=== PATIENT | female | born 1950 | race American Indian/Alaskan Native ===

== ENCOUNTER 2016-08-25 23:17 | Inpatient (IN) | payer MEDICARE ==
[2016-08-25] MEDS ORDERED: TYLENOL PO ONE (23:58)
[2016-08-26 00:51] LABS: Basophils % (Auto) 0.8 % (0.0-1.8); Eosinophils % (Auto) 0.3 % (0.0-4.3); Hemoglobin 14.7 gm/dl (10.1-14.3); Mean Corpuscular HGB Conc 33 % (30-34); Mean Corpuscular Hemoglobin 28 pg (28-32); Mean Corpuscular Volume 85 fl (79-97); Platelet Count 231 K/mm3 (140-440); Red Blood Count 5.29 M/mm3 (3.65-5.03); Red Cell Distribution Width 14.4 % (13.2-15.2); White Blood Count 11.6 K/mm3 (4.5-11.0)
[2016-08-26] MEDS ORDERED: MORPHINE ONE ×2 (00:54)
[2016-08-26] MEDS ORDERED: ZOFRAN ONE (00:54)
[2016-08-26 01:19] LABS: Blood Urea Nitrogen 16 mg/dL (7-17); Calcium 10.4 mg/dL (8.4-10.2); Carbon Dioxide 19 mmol/L (22-30); Chloride 89.8 mmol/L (98-107); Glucose 319 mg/dL (65-100); Potassium 3.7 mmol/L (3.6-5.0); Sodium 137 mmol/L (137-145)
[2016-08-26] MEDS ORDERED: ASPIRIN PO ONE (01:25)
[2016-08-26] MEDS ORDERED: NITRO-BID 2% TP ONE (01:25)
[2016-08-26 01:27] LABS: Anion Gap 32 mmol/L
[2016-08-26] MEDS ORDERED: SUBLIMAZE IV ONE (01:30)
--- NOTE | 2016-08-26 01:36 | Emergency Department Report ---
HPI - General Chief Complaint: Chest Pain Time Seen by Provider: 08/26/16 01:23 - HPI HPI: Room 9 The patient is a 66-year-old female presenting with a chief complaint of chest pain. Family states the patient awakened this morning with nausea and feeling faint. The nausea continued throughout 22:00 this evening and the patient suddenly developed substernal chest tightness and shortness of breath. The patient did vomit. Patient denies diaphoresis. The patient states her chest pain has decreased to a 2/10. The patient states her last stress test occurred approximately 10 years ago but she has never had a cardiac catheterization Location: Chest Duration: [see above] Quality: Tightness Severity: 2/10 Modifying factors: [see above] Context: [see above] Mode of transportation: [not driving] ED Past Medical Hx - Past Medical History Previous Medical History?: Yes Hx Hypertension: Yes Hx CVA: Yes (2005) Hx Diabetes: Yes Additional medical history: MVP - Surgical History Past Surgical History?: No - Family History Family history: no significant - Social History Smoking Status: Never Smoker Substance Use Type: None ED Review of Systems ROS: Stated complaint: SOB,CHEST PAIN Other details as noted in HPI Comment: All other systems reviewed and negative Constitutional: denies: chills, diaphoresis, fever Eyes: denies: eye pain, eye discharge, vision change ENT: denies: ear pain, throat pain Respiratory: shortness of breath Cardiovascular: chest pain Endocrine: no symptoms reported Gastrointestinal: nausea, vomiting Genitourinary: denies: urgency, dysuria, discharge Musculoskeletal: denies: back pain, joint swelling, arthralgia Skin: denies: rash, lesions Neurological: denies: headache, weakness, paresthesias Psychiatric: denies: anxiety, depression Hematological/Lymphatic: denies: easy bleeding, easy bruising Physical Exam - Physical Exam Vital Signs: Vital Signs 08/25/16 08/26/16 23:27 00:18 Temperature 98.1 F Pulse Rate 89 Respiratory 26 H 20 Rate Blood Pressure 191/90 [Right] O2 Sat by Pulse 100 99 Oximetry Physical Exam: GENERAL: The patient is well-developed well-nourished female lying on stretcher. Be in mild discomfort. [] HEENT: Normocephalic. Atraumatic. Extraocular motions are intact. Patient has moist mucous membranes. NECK: Supple. Trachea midline CHEST/LUNGS: Clear to auscultation. There is no respiratory distress noted. HEART/CARDIOVASCULAR: Regular. There is no tachycardia. There is no gallop rub or murmur. ABDOMEN: Abdomen is soft, nontender. Patient has normal bowel sounds. There is no abdominal distention. SKIN: There is no rash. There is no edema. There is no diaphoresis. NEURO: The patient is awake, alert, and oriented. The patient is cooperative. The patient has normal speech MUSCULOSKELETAL: There is no evidence of acute injury. ED Course Vital Signs 08/25/16 08/26/16 23:27 00:18 Temperature 98.1 F Pulse Rate 89 Respiratory 26 H 20 Rate Blood Pressure 191/90 [Right] O2 Sat by Pulse 100 99 Oximetry ED Medical Decision Making - Lab Data Result diagrams: 08/26/16 00:31 08/26/16 00:31 Laboratory Tests 08/26/16 08/26/16 00:31 00:31 WBC 11.6 H RBC 5.29 H Hgb 14.7 H Hct 45.0 H MCV 85 MCH 28 MCHC 33 RDW 14.4 Plt Count 231 Lymph % (Auto) 26.8 [place] % (Auto) 7.8 H Eos % (Auto) 0.3 Baso % (Auto) 0.8 Lymph # 3.1 [place] # 0.9 H Eos # 0.0 Baso # 0.1 Seg Neutrophils % 64.3 Seg Neutrophils # 7.5 Sodium 137 Potassium 3.7 Chloride 89.8 L Carbon Dioxide 19 L Anion Gap 32 BUN 16 Creatinine 0.8 Estimated GFR > 60 BUN/Creatinine Ratio 20.00 Glucose 319 H Calcium 10.4 H Troponin T 0.021 - EKG Data -: EKG Interpreted by Me EKG shows normal: sinus rhythm Rate: normal - EKG Data When compared to previous EKG there are: previous EKG unavailable Interpretation: nonspecific ST-T wave tayler (ST depression in leads 1, aVF, V3, V4 , V5, V6. T-wave inversions in leads 1, V3, V4, V5, V6. Biphasic T waves in leads 2 and aVF) - Radiology Data Radiology results: image reviewed (chest x-ray) interpreted by me: Chest x-ray-no focal infiltrates, no pneumothorax - Differential Diagnosis ACS, GERD, pericarditis Critical care attestation.: If time is entered above; I have spent that time in minutes in the direct care of this critically ill patient, excluding procedure time. ED Disposition Clinical Impression: Chest pain, ST segment depression, T wave inversion in EKG Disposition: OP ADMITTED IP TO THIS HOSP Is pt being admited?: Yes Does the pt Need Aspirin: Yes Condition: Fair Instructions: Chest Pain (ED) Referrals: PRIMARY CARE, [Primary Care Provider] - 3-5 Days Time of Disposition: 01:52 (hospitalist paged)
[2016-08-26] MEDS ORDERED: NACL 0.9% 1000 ML 1,000 ML IV ONE (01:55)
[2016-08-26] MEDS ORDERED: ZOFRAN IV ONE (02:15)
[2016-08-26] MEDS ORDERED: BABY ASPIRIN PO ONE (02:18)
[2016-08-26] MEDS ORDERED: APRESOLINE IV PRN (02:57)
--- NOTE | 2016-08-26 05:36 | Cat Scan Report ---
FINAL REPORT PROCEDURE: CT HEAD/BRAIN WO CON TECHNIQUE: Computerized tomography of the head was performed without contrast material. HISTORY: double vision, slurred speech COMPARISON: No prior studies are available for comparison. FINDINGS: Skull and scalp: Normal. Paranasal sinuses: Normal. Ventricles and subarachnoid spaces: Normal. Cerebrum: No evidence of hemorrhage, acute infarction or mass. Mild atrophy and periventricular deep white matter change.. Cerebellum and brainstem: No evidence of hemorrhage, acute infarction or mass. Vasculature: Normal. Comments: None. IMPRESSION: There is no evidence of an acute intracranial process. Mild atrophy and periventricular deep white matter change.
--- NOTE | 2016-08-26 05:47 | History and Physical Report ---
[id number] History of present illness: [id number] woman with history of hypertension, diabetes, mitral valve prolapse, CVA with residual left-sided weakness comes to the emergency room with complaints of chest pain. Pain is in the epigastric area which she is unable to describe, constant, intensity 6/10, no radiation and she cannot identify exacerbating or relieving factors. Daughter state that she had multiple episodes of nausea vomiting, also complaining of shortness of breath, no diaphoresis or palpitation.. Daughter patient has slurred speech and double vision Patient denies cough, abdominal pain, hematochezia, dysuria, frequency, focal weakness, fever chills, polydipsia polyuria, hot or cold intolerance, easy bruisability, or rash or bleeding from mucosal membrane, rhinorrhea, epistaxis, earache, tinnitus, eye discharge, anxiety, depression. Other review of systems negative PAST SURGICAL HISTORY: Breast surgery SOCIAL HISTORY: Denies alcohol, tobacco, drugs FAMILY HISTORY: Hypertension Medications and Allergies Allergies Allergy/AdvReac Type Severity Reaction Status Date / Time morphine Allergy Hives Verified 08/25/16 23:21 Home Medications Medication Instructions Recorded Confirmed Last Taken Type Hydrochlorothiazide [HCTZ] 25 mg PO QDAY 08/26/16 08/26/16 08/25/16 History Insulin Glargine [Lantus] 15 unit SUB-Q QHS 08/26/16 08/26/16 08/25/16 History Insulin Lispro [Humalog 100 See Protocol SQ AC 08/26/16 08/26/16 08/25/16 History UNITS/ML Kwikpen] Lisinopril [Zestril] 40 mg PO DAILY 08/26/16 08/26/16 08/25/16 History Metoprolol Tartrate 100 mg PO DAILY 08/26/16 08/26/16 08/25/16 History amLODIPine [Norvasc] 5 mg PO DAILY 08/26/16 08/26/16 08/25/16 History Active Meds: Active Medications Hydralazine HCl (Apresoline) 5 mg IV Q6H PRN PRN Reason: Hypertension Last Admin: 08/26/16 04:37 Dose: 5 mg Sodium Chloride (Nacl 0.9% 1000 Ml) 1,000 mls @ 125 mls/hr IV ONCE ONE Stop: 08/26/16 09:54 Last Admin: 08/26/16 02:35 Dose: 125 mls/hr Exam - Physical Exam Narrative exam: Gen. appearance: Patient lying in bed, no apparent distress HEENT: Normocephalic, atraumatic, pupils equally round and reactive to light, extraocular movement intact, and no sclericterus,. No JVD or thyromegaly or nodule,neck supple, no carotid bruit ,mucous membranes moist, no exudate or erythema Heart: S1, S2, regular rate and rhythm Lungs: Clear to auscultation bilaterally, breathing comfortable Abdomen: Positive bowel sounds, nontender, nondistended, no organomegaly Extremity: No edema, cyanosis, clubbing Skin: No rash, nodules, warm, dry Neuro: Oriented 3, cranial nerves II-12 intact, speech is slurred, poor effort on motor motor - Constitutional Vitals: Temp Pulse Resp BP Pulse Ox 98.1 F 100 H 19 155/72 100 08/25/16 23:27 08/26/16 04:45 08/26/16 04:45 08/26/16 04:45 08/26/16 04:45 Results - Labs CBC & Chem 7: 08/26/16 00:31 08/26/16 00:31 - Imaging and Cardiology EKG: image reviewed (caseyr, silvano with repol, inverted t in inf leads) Chest x-ray: image reviewed (nad) CT Scan - head: pending Assessment and Plan Acute CVA Hypertension malignant Chest pain rule out ACS Diabetes type 2 History of CVA Admits medicine Obtain MRI of the head, carotid Doppler, echo, lipid profile Check cardiac enzymes, neurochecks, swallow screen Start aspirin, statin, and stress tests Consult neurology, hydralazine as needed for blood pressure control Check fingersticks initiate insulin sliding scale, start DVT prophylaxis
[2016-08-26] MEDS ORDERED: DILAUDID IV PRN (07:46)
[2016-08-26] MEDS ORDERED: TYLENOL PO PRN ×2 (07:46)
[2016-08-26] MEDS ORDERED: SODIUM CHLORIDE FLUSH SYRINGE 10 ML INJ PRN (07:46)
[2016-08-26] MEDS ORDERED: ZOFRAN IV PRN (07:46)
[2016-08-26] MEDS ORDERED: SODIUM CHLORIDE FLUSH SYRINGE 10 ML IV PRN (07:46)
[2016-08-26] MEDS ORDERED: MILK OF MAGNESIA PO PRN (07:46)
--- NOTE | 2016-08-26 09:46 | XRay Report ---
AP CHEST : 08/25/16 23:17:00 CLINICAL: Chest pain. COMPARISON:None FINDINGS: Normal heart and pulmonary vessels. The lungs are normally expanded and clear. The bones and soft tissues are unremarkable. IMPRESSION: No acute cardiopulmonary process.
[2016-08-26] MEDS ORDERED: LOVENOX SUB-Q SCH (10:00)
[2016-08-26] MEDS ORDERED: DULCOLAX PR PRN ×2 (10:00)
[2016-08-26] MEDS ORDERED: ASPIRIN PO SCH (10:00)
[2016-08-26 10:20] LABS: Creatine Kinase MB 4.8 ng/mL (0.0-4.0)
--- NOTE | 2016-08-26 11:55 | Consultation ---
History of Present Illness - Reason for Consult Consult date: 08/26/16 stroke - History of Present Illness patient is seen and assessed she has hand numbness and slurred speech this a/ w severe vertigo plan further neuro w/u for ischemic stroke exam is stable at this point- reviewed the chart Thanks for the consult Medications and Allergies Allergies Allergy/AdvReac Type Severity Reaction Status Date / Time morphine Allergy Hives Verified 08/25/16 23:21 Active Meds: Active Medications Acetaminophen (Tylenol) 650 mg PO Q4H PRN PRN Reason: Pain MILD(1-3)/Fever >100.5/FU Aspirin (Aspirin) 325 mg PO QDAY [facility] Bisacodyl (Dulcolax) 10 mg [place] QDAY PRN PRN Reason: Constipation unrelieved by MOM Enoxaparin Sodium (Lovenox) 40 mg SUB-Q QDAY@1000 ADILENE Hydralazine HCl (Apresoline) 5 mg IV Q6H PRN PRN Reason: Keep SBP between 160-185 mm Hg Hydromorphone HCl (Dilaudid) 0.5 mg IV Q6H PRN PRN Reason: Pain , Severe (7-10) Insulin Human Regular (Novolin R) 0 units SUB-Q ACHS AD[facility] PRN Reason: Protocol Magnesium Hydroxide (Milk Of Magnesia) 30 ml PO Q4H PRN PRN Reason: Constipation Ondansetron HCl (Zofran) 4 mg IV Q8H PRN PRN Reason: N/V unrelieved by Reglan Simvastatin (Zocor) 20 mg PO QHS [facility] Sodium Chloride (Sodium Chloride Flush Syringe 10 Ml) 10 ml IV PRN PRN PRN Reason: LINE FLUSH Exam - Constitutional Vitals: Temp Pulse Resp BP Pulse Ox 98.3 F 99 H 16 170/77 99 08/26/16 06:44 08/26/16 06:44 08/26/16 06:44 08/26/16 07:00 08/26/16 11:07 Results - Labs CBC & Chem 7: 08/26/16 00:31 08/26/16 00:31 Labs: Abnormal lab results 08/26/16 08/26/16 08/26/16 Range/Units 04:45 07:40 07:52 POC Glucose 304 H 379 H (70-105) CK-MB (CK-2) 4.8 H (0.0-4.0) ng/mL CK-MB (CK-2) Rel Index 5.2 H (0-4) Cholesterol 267 H (50-199) mg/dL LDL Cholesterol Direct 183 H (50-130) mg/dL HDL Cholesterol 65 H (40-59) mg/dL
[2016-08-26] MEDS: LOVENOX SUB-Q SCH (12:19)
[2016-08-26] MEDS: APRESOLINE IV PRN ×2 (12:20→17:37)
--- NOTE | 2016-08-26 16:16 | Event Note ---
Date: 08/26/16 Patient seen and examined, admitted this morning with stroke protocol. Could not have stress test today as stress lab is closed. SHe will have the stress test tomorrow. Continue current management as dictated in H&P.
[2016-08-26 16:41] LABS: Creatine Kinase MB 8.4 ng/mL (0.0-4.0)
[2016-08-26] MEDS: PROTONIX IV SCH (18:39)
[2016-08-26] MEDS: NACL 0.9% 1000 ML 1,000 ML IV SCH (18:39)
[2016-08-26] MEDS: ZOCOR PO SCH (21:59)
--- NOTE | 2016-08-27 01:04 | Admit Criteria Form ---
Admission Criteria Documentation: CHEST PAIN Clinical Indications for Admission to Inpatient Care (Place 'X' for any and all applicable criteria): Admission is indicated for chest pain and ANY ONE of the following(1)(2)(3)(4)(5 ): [ ]I. Angina with acute coronary syndrome (Also use Myocardial Infarction or Angina guideline) [ ]II. Hemodynamic instability [ ]III. Angina needing acute intervention as indicated by ALL of the following( 11)(12): [ ]a) Unstable angina is present as indicated by angina that is ANY ONE of the following: [ ]i) New onset [ ]ii) Nocturnal [ ]iii) Prolonged at rest [ ]iv) Progressive [ ]b) Angina warrants acute intervention as indicated by ANY ONE of the following: [ ]i) Recurrent angina (e.g, not responding as previously to treatment) [ ]ii) Angina at rest or with low-level activities despite initial medical therapy [ ]iii) New or presumably new ST-segment depression on ECG [ ]iv) Signs or symptoms of heart failure (eg, dyspnea, pulmonary edema) [ ]v) New or worsening mitral regurgitation [ ]vi) Hemodynamic instability [ ]vii) Dangerous arrhythmia (eg, sustained ventricular tachycardia) [ ]viii) History of percutaneous coronary intervention within 6 months [ ]ix) History of coronary artery bypass graft surgery [ ]x) NEYMAR risk score of 2 or greater[A] [ ]xi) History of Diabetes(14) [ ]xii) High-risk cardiac ischemia findings on noninvasive testing (e.g, echocardiogram, treadmill testing, nuclear scan) [ ]xiii) Chronic renal insufficiency (ie, estimated GFR less than 60 mL/min/1.732m) [ ]xiv) Left ventricular ejection fraction less than 40% [ ]IV. Evidence of VA (eg, cardiac biomarkers positive, ST-segment elevation on ECG) also use Myocardial Infarction Criteria Form. [ ]V. Pulmonary edema [ ]. Respiratory distress [ ]VII. Chest pain indicative of serious diagnosis other than coronary artery disease (eg, aortic dissection) [ ]VIII. Contraindications and/or Inappropriate clinical situations for Observational Care in patients with Chest Pain, when ANY ONE of the following is required: [ ]a) Patient with risk factor for pulmonary embolism, acute coronary syndrome and myocardial infarction (18) [ ]b) Patient with Pulmonary embolism require an average LOS of 4.3 days, therefore emergency department observation management is inappropriate 18,23 [ ]c) Painful condition/s in the elderly, have the highest rate of recidivism after emergency department observation management (10.8%) 20,21,22 [ ]d) Elevated cardiac biomarker requires intensive and exhaustive care (19) [ X]IX. General contraindications and/or Inappropriate clinical situations for Observational Care in patients with Chest Pain, when ANY ONE of the following is required: [ ]a) Prediction of prolongation of LOS based on ANY ONE of the following may be considered as a contraindication for observational care 2, 3, 4, 5, 6, 7, 8, 9, 10, 11 [ ]i) Age > 65 yrs. [ ]ii) Patient arriving by ambulance [ ]iii) Patient with high acuity [ ]iv) Patient requiring vital sign monitoring [ ]v) Patient on IV medication [ X]b) Systolic blood pressures 180mmHg 3,12 [ ]c) Patient with altered mental status including delirium and other alteration of consciousness, (3) [ ]d) Patient whose discharge disposition will be to a group home home or rehabilitation home should not be managed in Emergency Department Observation Unit. CMS rule requires 3 days hospital stay before such placement. 3,13 [ ]e) Patient with failure to thrive due to broad array of etiologies 3,16,17 [ ]f) Inability to ambulate 3,14 Extended stay beyond goal length of stay may be needed for (1)(28): [ ]a) Specific condition diagnosed after evaluation (eg, pulmonary embolism, aortic dissection) [ ]b) Unstable angina [ ]c) Continued suspicion of acute coronary syndrome with inability to complete needed cardiac evaluation (eg, patient clinically unable to undergo stress testing) [ ]d) Myocardial infarction (Contents from ANGINA and CHEST PAIN clinical indications for admission to inpatient care have been integrated in this form) The original [facility] content created by [employer] has been revised. The portions of the content which have been revised are identified through the use of italic text or in bold, and [facility] has neither reviewed nor approved the modified material. All other unmodified content is copyright [facility]. Please see references footnoted in the original [facility] edition 2016 Admission Criteria Met: Yes
[2016-08-27] MEDS: APRESOLINE IV PRN ×2 (03:50→18:30)
[2016-08-27] MEDS ORDERED: LEXISCAN IV ONE (08:09)
[2016-08-27] MEDS ORDERED: ASPIRIN PO SCH (10:00)
[2016-08-27] MEDS ORDERED: FLUARIX QUAD 2016-2017(36 MOS+) IM ONE (12:00)
--- NOTE | 2016-08-27 12:26 | Treadmill Report ---
NUCLEAR STRESS TEST REASON FOR STUDY: Shortness of breath with abnormal troponin. IMAGING PROTOCOL: The patient received 10 mCi of Technetium 99m Tetrofosmin for resting image and 28 mCi of Technetium 99m Tetrofosmin for stress imaging. The imaging for the whole procedure was completed 30-90 minutes following the initial injection of Technetium 99m tetrofosmin. The SPECT imaging in the 180 degree arc was performed in the right anterior oblique projection. Computerized reconstruction of the images was performed for analysis. IMAGING RESULTS: Normal cavity size from stress to rest. Normal distribution of radionuclide in the anterior, inferior, septal, and apical regions. Gated SPECT, EF 60% with no wall motion abnormalities. The patient infused Lexiscan with no EKG changes suggestive of ischemia. SUMMARY: 1. Negative Lexiscan EKG. 2. Normal rest and stress myocardial perfusion scan. No significant stress ischemia. No wall motion abnormality. Gated SPECT, EF is 60%. JOB# [id number] RENUKA/JULIAN
[2016-08-27] MEDS: PROTONIX IV SCH (14:30)
[2016-08-27] MEDS: PROTONIX PO SCH (14:30)
[2016-08-27] MEDS: ASPIRIN PO SCH (14:30)
--- NOTE | 2016-08-27 15:03 | Progress Note ---
Assessment and Plan Assessment and plan: Acute ischemic stroke. Most likely. MRI still pending. Started on Aspirin. Neurology on case. Echo, Carotid Doppler. Dysphagia. For modified Barium swallow Hypertension. Control BP gently because of stroke. Diabetes Mellitus Type 2. Fingerstick glucose q 6h. Hyperlipidemia. Start Zocor Full code status. Discussed with Patient and daughter. History Interval history: Still slurred speech, Difficulty swallowing Hospitalist Physical - Physical exam Narrative exam: Gen: Not in acute distress HEENT: Facial weakness Neck :supple, no JVD Lungs: Crackles left upper lung field, no wheeze Heart S1 and S2 regular, no murmurs no gallop Abdomen:soft, nontender, nondistended, normal bowel sounds Ext: No edema, no clubbing or cyanosis Neuro: Awake alert oriented x 3, dysarthria, facial weakness, muscle power 5/5 both upper and lower ext - Constitutional Vitals: Temp Pulse Resp BP Pulse Ox 98.4 F 97 H 18 158/68 98 08/27/16 09:06 08/27/16 10:23 08/27/16 09:06 08/27/16 10:23 08/27/16 09:06 Results - Labs CBC & Chem 7: 08/28/16 07:16 08/28/16 07:16 Labs: Laboratory Last Values WBC 11.6 K/mm3 (4.5-11.0) H 08/26/16 00:31 RBC 5.29 M/mm3 (3.65-5.03) H 08/26/16 00:31 Hgb 14.7 gm/dl (10.1-14.3) H 08/26/16 00:31 Hct 45.0 % (30.3-42.9) H 08/26/16 00:31 MCV 85 fl (79-97) 08/26/16 00:31 MCH 28 pg (28-32) 08/26/16 00:31 MCHC 33 % (30-34) 08/26/16 00:31 RDW 14.4 % (13.2-15.2) 08/26/16 00:31 Plt Count 231 K/mm3 (140-440) 08/26/16 00:31 Lymph % (Auto) 26.8 % (13.4-35.0) 08/26/16 00:31 [place] % (Auto) 7.8 % (0.0-7.3) H 08/26/16 00:31 Eos % (Auto) 0.3 % (0.0-4.3) 08/26/16 00:31 Baso % (Auto) 0.8 % (0.0-1.8) 08/26/16 00:31 Lymph # 3.1 K/mm3 (1.2-5.4) 08/26/16 00:31 [place] # 0.9 K/mm3 (0.0-0.8) H 08/26/16 00:31 Eos # 0.0 K/mm3 (0.0-0.4) 08/26/16 00:31 Baso # 0.1 K/mm3 (0.0-0.1) 08/26/16 00:31 Seg Neutrophils % 64.3 % (40.0-70.0) 08/26/16 00:31 Seg Neutrophils # 7.5 K/mm3 (1.8-7.7) 08/26/16 00:31 Sodium 137 mmol/L (137-145) 08/26/16 00:31 Potassium 3.7 mmol/L (3.6-5.0) 08/26/16 00:31 Chloride 89.8 mmol/L (98-107) L 08/26/16 00:31 Carbon Dioxide 19 mmol/L (22-30) L 08/26/16 00:31 Anion Gap 32 mmol/L 08/26/16 00:31 BUN 16 mg/dL (7-17) 08/26/16 00:31 Creatinine 0.8 mg/dL (0.7-1.2) 08/26/16 00:31 Estimated GFR > 60 ml/min 08/26/16 00:31 BUN/Creatinine Ratio 20.00 % 08/26/16 00:31 Glucose 319 mg/dL (65-100) H 08/26/16 00:31 POC Glucose 233 (70-105) H 08/26/16 23:03 Calcium 10.4 mg/dL (8.4-10.2) H 08/26/16 00:31 Total Creatine Kinase 114 units/L (30-135) 08/26/16 14:44 CK-MB (CK-2) 8.4 ng/mL (0.0-4.0) H 08/26/16 14:44 CK-MB (CK-2) Rel Index 7.3 (0-4) H 08/26/16 14:44 Troponin T 0.026 ng/mL (0.00-0.029) 08/26/16 14:44 Triglycerides 96 mg/dL (2-149) 08/26/16 07:52 Cholesterol 267 mg/dL (50-199) H 08/26/16 07:52 LDL Cholesterol Direct 183 mg/dL (50-130) H 08/26/16 07:52 HDL Cholesterol 65 mg/dL (40-59) H 08/26/16 07:52 Cholesterol/HDL Ratio 4.10 % 08/26/16 07:52
[2016-08-27] MEDS: LOVENOX SUB-Q SCH (17:32)
--- NOTE | 2016-08-27 18:33 | Consultation ---
History of Present Illness - Reason for Consult Consult date: 08/27/16 stroke - History of Present Illness went over the chart and reviewed the MRI and there is clear cut dorsal medulary infarct on the left side seen on the DWI sequence of the type seen in lacunar disease in the dorsal medulary plate this is also called Wallenberg Syndrome ( variant) does explain all the brain stem findings and usually can actually cause chest pain / vertigo/ dysarthria rec medical therapy Medications and Allergies Allergies Allergy/AdvReac Type Severity Reaction Status Date / Time morphine Allergy Hives Verified 08/25/16 23:21 Home Medications Medication Instructions Recorded Confirmed Last Taken Type Hydrochlorothiazide [HCTZ] 25 mg PO QDAY 08/26/16 08/26/16 08/25/16 History Insulin Glargine [Lantus] 15 unit SUB-Q QHS 08/26/16 08/26/16 08/25/16 History Insulin Lispro [Humalog 100 See Protocol SQ AC 08/26/16 08/26/16 08/25/16 History UNITS/ML Kwikpen] Lisinopril [Zestril] 40 mg PO DAILY 08/26/16 08/26/16 08/25/16 History Metoprolol Tartrate 100 mg PO DAILY 08/26/16 08/26/16 08/25/16 History amLODIPine [Norvasc] 5 mg PO DAILY 08/26/16 08/26/16 08/25/16 History Active Meds: Active Medications Acetaminophen (Tylenol) 650 mg PO Q4H PRN PRN Reason: Pain MILD(1-3)/Fever >100.5/FU Aspirin (Aspirin) 325 mg PO QDAY [facility] Last Admin: 08/27/16 14:30 Dose: Not Given Bisacodyl (Dulcolax) 10 mg [place] QDAY PRN PRN Reason: Constipation unrelieved by MOM Enoxaparin Sodium (Lovenox) 40 mg SUB-Q QDAY@1000 [facility]ILENE Last Admin: 08/27/16 17:32 Dose: Not Given Hydralazine HCl (Apresoline) 5 mg IV Q6H PRN PRN Reason: Keep SBP between 160-185 mm Hg Last Admin: 08/27/16 03:50 Dose: 5 mg Hydromorphone HCl (Dilaudid) 0.5 mg IV Q6H PRN PRN Reason: Pain , Severe (7-10) Sodium Chloride (Nacl 0.9% 1000 Ml) 1,000 mls @ 50 mls/hr IV DIRECT [facility] Last Admin: 08/26/16 18:39 Dose: 50 mls/hr Insulin Human Regular (Novolin R) 0 units SUB-Q ACHS ADILENE PRN Reason: Protocol Last Admin: 08/27/16 17:32 Dose: Not Given Magnesium Hydroxide (Milk Of Magnesia) 30 ml PO Q4H PRN PRN Reason: Constipation Ondansetron HCl (Zofran) 4 mg IV Q8H PRN PRN Reason: N/V unrelieved by Reglan Pantoprazole Sodium (Protonix) 40 mg PO DAILY [facility] Last Admin: 08/27/16 14:30 Dose: Not Given Simvastatin (Zocor) 20 mg PO QHS [facility] Last Admin: 08/26/16 21:59 Dose: Not Given Sodium Chloride (Sodium Chloride Flush Syringe 10 Ml) 10 ml IV PRN PRN PRN Reason: LINE FLUSH Exam - Constitutional Vitals: Temp Pulse Resp BP Pulse Ox 98.4 F 97 H 18 158/68 98 08/27/16 09:06 08/27/16 16:00 08/27/16 09:06 08/27/16 10:23 08/27/16 09:06 Results - Labs CBC & Chem 7: 08/26/16 00:31 08/26/16 00:31 Labs: Abnormal lab results 08/26/16 08/26/16 08/26/16 Range/Units 12:02 16:27 21:49 POC Glucose 359 H 345 H 232 H (70-105) 08/26/16 Range/Units 23:03 POC Glucose 233 H (70-105)
[2016-08-27] MEDS ORDERED: CATAPRES-TTS PATCH TD SCH (19:12)
[2016-08-27] MEDS: NACL 0.9% 1000 ML 1,000 ML IV SCH (22:45)
[2016-08-27] MEDS: ZOCOR PO SCH (22:47)
[2016-08-28] MEDS: APRESOLINE IV PRN ×3 (05:24→21:18)
[2016-08-28 07:35] LABS: Hematocrit 40.6 % (30.3-42.9); Hemoglobin 13.3 gm/dl (10.1-14.3); Mean Corpuscular HGB Conc 33 % (30-34); Mean Corpuscular Hemoglobin 27 pg (28-32); Mean Corpuscular Volume 83 fl (79-97); Platelet Count 207 K/mm3 (140-440); Red Blood Count 4.88 M/mm3 (3.65-5.03); Red Cell Distribution Width 14.3 % (13.2-15.2); White Blood Count 13.4 K/mm3 (4.5-11.0)
[2016-08-28 07:53] LABS: Anion Gap 19 mmol/L; Blood Urea Nitrogen 19 mg/dL (7-17); Calcium 8.8 mg/dL (8.4-10.2); Carbon Dioxide 25 mmol/L (22-30); Chloride 99.5 mmol/L (98-107); Glucose 247 mg/dL (65-100); Potassium 3.2 mmol/L (3.6-5.0); Sodium 140 mmol/L (137-145)
--- NOTE | 2016-08-28 08:44 | Magnetic Resonance Report ---
MRI of the brain without contrast. Procedure: Routine brain protocol without contrast. Findings: In the left posterior inferior brain stem, there is a focus of restricted diffusion which measures 5 mm in diameter. There is associated area of hyperintense T2 signal/edema in this region. There are no additional areas of restricted diffusion. There is a 5 mm chronic infarct in the right cerebellar hemisphere. A subcentimeter chronic lacunae seen in the posterior right basal ganglia as well. There are scattered areas of hyperintense T2 and flair signal in the periventricular white matter, slightly more pronounced on the right. There are no masses or extra-axial collections. The ventricles are normal in size and contour. There is evidence of mild chronic ethmoid sinusitis. Impression: 1. Acute lacunar infarct in the left inferior brain stem. 2. Chronic ischemic changes including chronic lacunar infarcts as described. Comment: The study was presented to me for dictation at 8:30 AM on August 28, 2016.
--- NOTE | 2016-08-28 08:48 | Echocardiography Report ---
Transthoracic Echocardiogram Indication: CVA BP: 196/86 Conclusions *Global left ventricular wall motion and contractility are within normal limits. *The estimated ejection fraction is 55-60%. *Abnormal left ventricular diastolic filling is observed, consistent with impaired relaxation. *Mild concentric left ventricular hypertrophy is observed. *There is mild aortic regurgitation. *Mild aortic leaflet calcification is visualized. *There is mild mitral regurgitation. *There is mild tricuspid regurgitation. *The right ventricular systolic pressure is calculated at 28 mmHg. *There is no evidence of pulmonic regurgitation. *There is no obvious evidence of intracardiac mass or thrombus. Findings Left Ventricle: The left ventricular chamber size is normal. Mild concentric left ventricular hypertrophy is observed. Global left ventricular wall motion and contractility are within normal limits. Global left ventricular systolic function is normal. The estimated ejection fraction is 55-60%. Abnormal left ventricular diastolic filling is observed, consistent with impaired relaxation. Left Atrium: The left atrium is normal in size with no visual thrombus identified. Right Ventricle: The right ventricular cavity size is normal. The right ventricular global systolic function is normal. Right Atrium: The right atrium appears normal. The interatrial septum appears normal. Aortic Valve: The aortic valve leaflets are mildly thickened. Mild aortic leaflet calcification is visualized. There is mild aortic regurgitation. There is no evidence of aortic stenosis. Mitral Valve: The mitral valve leaflets are mildly thickened. There is mild mitral regurgitation. There is no evidence of mitral stenosis. Tricuspid Valve: The tricuspid valve leaflets are normal. There is mild tricuspid regurgitation. The right ventricular systolic pressure is calculated at 28 mmHg. There is no tricuspid stenosis. Pulmonic Valve: The pulmonic valve appears normal. There is no evidence of pulmonic regurgitation. There is no pulmonic stenosis. Pericardium: There is no pericardial effusion. Aorta: There is no dilatation of the ascending aorta. Venous: The inferior vena cava appears normal in size. Summary: There is no evidence of intracardiac mass or thrombus. Measurements Chambers MM Name Value Normal Range Ao root diameter (MM) 3 cm (2 - 3.7) LA dimension (AP) MM 3.8 cm (1.9 - 4) LA:Ao ratio (MM) 1.27 ratio - AV cusp separation (MM) 1.2 cm (1.5 - 2.6) Chambers 2D Name Value Normal Range IVSd (2D) 1.2 cm (0.6 - 1.1) LVPWd (2D) 1.28 cm (0.6 - 1.1) IVS:LVPW ratio (2D) 0.94 ratio - LVIDd (2D) 4.54 cm (3.7 - 5.6) LVIDs (2D) 2.78 cm (2 - 3.8) LV FS (Teichholz) (2D) 38.8 % - LV FS (cube) (2D) 38.8 % - EF Teichholz (2D) 69.3 % - LA dimension (AP) 2D 4.1 cm (1.9 - 4) Volumes/Mass Name Value Normal Range LA ESV SP 4CH (MOD) 43 ml - LA ESV SP 2CH (MOD) 49 ml - Diastolic/Systolic Function Name Value Normal Range MV E-wave Vmax 0.9 m/sec - MV deceleration time 189 msec - MV A-wave Vmax 0.86 m/sec - MV E:A ratio 1 ratio - LV septal e' Vmax 0.05 m/sec - LV lateral e' Vmax 0.08 m/sec - LV E:e' septal ratio 19.8 ratio - LV E:e' lateral ratio 12 ratio - Aortic Valve Name Value Normal Range AV VTI 35.3 cm - AV mean gradient 8 mmHg - LVOT diameter 2 cm - LVOT VTI 24.7 cm - LVOT mean gradient 4 mmHg - SV LVOT 78 ml - JULIUS (continuity VTI) 2.2 cm2 - Mitral Valve Name Value Normal Range MV PHT 51 msec - MR Vmax 3.28 m/sec - MVA (PHT) 4.31 cm2 - Tricuspid Valve Name Value Normal Range TR Vmax 2.48 m/sec - TR peak gradient 25 mmHg - RAP 3 mmHg - RVSP 28 mmHg - Pulmonic Valve/Qp:Qs Name Value Normal Range PV Vmax 1.44 m/sec - PV peak gradient 8 mmHg - PV acceleration time 162 msec -
[2016-08-28] MEDS: ASPIRIN PO SCH (11:03)
[2016-08-28] MEDS: LOVENOX SUB-Q SCH (11:03)
[2016-08-28] MEDS: PROTONIX PO SCH (11:03)
--- NOTE | 2016-08-28 12:59 | Progress Note ---
Assessment and Plan Assessment and plan: Acute ischemic stroke. Acute lacunar infarct left inferior Brainstem.. Started on Aspirin. Neurology on case. Echo, Carotid Dopplers unremarkable.. Dysphagia. For modified Barium swallow Hypertension. Control BP gently because of stroke. Diabetes Mellitus Type 2. Fingerstick glucose q 6h. Hyperlipidemia. Start Zocor Full code status. Discussed with Patient and daughter. History Interval history: Still slurred speech, Difficulty swallowing Hospitalist Physical - Physical exam Narrative exam: Gen: Not in acute distress HEENT: Facial weakness Neck :supple, no JVD Lungs: Crackles left upper lung field, no wheeze Heart S1 and S2 regular, no murmurs no gallop Abdomen:soft, nontender, nondistended, normal bowel sounds Ext: No edema, no clubbing or cyanosis Neuro: Awake alert oriented x 3, dysarthria, facial weakness, muscle power 5/5 both upper and lower ext - Constitutional Vitals: Temp Pulse Resp BP Pulse Ox 98.3 F 111 H 18 162/72 97 08/28/16 08:26 08/28/16 10:30 08/28/16 08:26 08/28/16 08:26 08/28/16 08:26 Results - Labs CBC & Chem 7: 08/28/16 07:16 08/28/16 07:16 Labs: Laboratory Last Values WBC 13.4 K/mm3 (4.5-11.0) H 08/28/16 07:16 RBC 4.88 M/mm3 (3.65-5.03) 08/28/16 07:16 Hgb 13.3 gm/dl (10.1-14.3) 08/28/16 07:16 Hct 40.6 % (30.3-42.9) 08/28/16 07:16 MCV 83 fl (79-97) 08/28/16 07:16 MCH 27 pg (28-32) L 08/28/16 07:16 MCHC 33 % (30-34) 08/28/16 07:16 RDW 14.3 % (13.2-15.2) 08/28/16 07:16 Plt Count 207 K/mm3 (140-440) 08/28/16 07:16 Lymph % (Auto) 26.8 % (13.4-35.0) 08/26/16 00:31 Sierra % (Auto) 7.8 % (0.0-7.3) H 08/26/16 00:31 Eos % (Auto) 0.3 % (0.0-4.3) 08/26/16 00:31 Baso % (Auto) 0.8 % (0.0-1.8) 08/26/16 00:31 Lymph # 3.1 K/mm3 (1.2-5.4) 08/26/16 00:31 Sierra # 0.9 K/mm3 (0.0-0.8) H 08/26/16 00:31 Eos # 0.0 K/mm3 (0.0-0.4) 08/26/16 00:31 Baso # 0.1 K/mm3 (0.0-0.1) 08/26/16 00:31 Seg Neutrophils % 64.3 % (40.0-70.0) 08/26/16 00:31 Seg Neutrophils # 7.5 K/mm3 (1.8-7.7) 08/26/16 00:31 Sodium 137 mmol/L (137-145) 08/26/16 00:31 Potassium 3.7 mmol/L (3.6-5.0) 08/26/16 00:31 Chloride 89.8 mmol/L (98-107) L 08/26/16 00:31 Carbon Dioxide 25 mmol/L (22-30) 08/28/16 07:16 Anion Gap 32 mmol/L 08/26/16 00:31 BUN 19 mg/dL (7-17) H 08/28/16 07:16 Creatinine 0.5 mg/dL (0.7-1.2) L 08/28/16 07:16 Estimated GFR > 60 ml/min 08/28/16 07:16 BUN/Creatinine Ratio 38.00 % 08/28/16 07:16 Glucose 247 mg/dL (65-100) H 08/28/16 07:16 POC Glucose 222 (70-105) H 08/28/16 12:26 Calcium 8.8 mg/dL (8.4-10.2) D 08/28/16 07:16 Total Creatine Kinase 114 units/L (30-135) 08/26/16 14:44 CK-MB (CK-2) 8.4 ng/mL (0.0-4.0) H 08/26/16 14:44 CK-MB (CK-2) Rel Index 7.3 (0-4) H 08/26/16 14:44 Troponin T 0.026 ng/mL (0.00-0.029) 08/26/16 14:44 Triglycerides 96 mg/dL (2-149) 08/26/16 07:52 Cholesterol 267 mg/dL (50-199) H 08/26/16 07:52 LDL Cholesterol Direct 183 mg/dL (50-130) H 08/26/16 07:52 HDL Cholesterol 65 mg/dL (40-59) H 08/26/16 07:52 Cholesterol/HDL Ratio 4.10 % 08/26/16 07:52
[2016-08-28] MEDS ORDERED: CATAPRES-TTS PATCH TD SCH (14:00)
--- NOTE | 2016-08-28 14:30 | Fluoroscopy Report ---
MODIFIED BARIUM SWALLOW: A modified barium swallow was performed with the aid of the speech pathologist. Fluoroscopic observation with multiple consistencies of barium was performed. Please see speech pathologist's notes for impression.
--- NOTE | 2016-08-28 15:21 | Consultation ---
History of Present Illness - Reason for Consult Consult date: 08/28/16 Evaluate for Acute IRU - History of Present Illness 66 y.o. female who presented to the ED secondary to acute onset of shortness of breath, chest pain and difficulty ambulating. Pt reports prior history of CVA with associated left leg weakness that later resolved completely. Chest pain work-up was negative; however, pt was found to have an acute lacunar infarct at the left inferior brain stem. Pt has good movement in all extremities, however , has ongoing dysphagia. Pt failed MBS on today. Consult for post-acute placement recommendations. Past History Past Medical History: diabetes, hypertension, stroke Past Surgical History: Other (removal of breast cysts) Social history: lives with family (daugther). denies: smoking, alcohol abuse Family history: hypertension, other (lupus) Medications and Allergies Allergies Allergy/AdvReac Type Severity Reaction Status Date / Time morphine Allergy Hives Verified 08/25/16 23:21 fentanyl AdvReac Unknown Verified 08/28/16 20:56 Home Medications Medication Instructions Recorded Confirmed Last Taken Type Hydrochlorothiazide [HCTZ] 25 mg PO QDAY 08/26/16 08/26/16 08/25/16 History Insulin Glargine [Lantus] 15 unit SUB-Q QHS 08/26/16 08/26/16 08/25/16 History Insulin Lispro [Humalog 100 See Protocol SQ AC 08/26/16 08/26/16 08/25/16 History UNITS/ML Kwikpen] Lisinopril [Zestril] 40 mg PO DAILY 08/26/16 08/26/16 08/25/16 History Metoprolol Tartrate 100 mg PO DAILY 08/26/16 08/26/16 08/25/16 History amLODIPine [Norvasc] 5 mg PO DAILY 08/26/16 08/26/16 08/25/16 History Active Meds: Active Medications Acetaminophen (Tylenol) 650 mg PO Q4H PRN PRN Reason: Pain MILD(1-3)/Fever >100.5/FU Aspirin (Aspirin) 325 mg PO QDAY [facility] Last Admin: 08/28/16 11:03 Dose: Not Given Bisacodyl (Dulcolax) 10 mg [place] QDAY PRN PRN Reason: Constipation unrelieved by MOM Clonidine HCl (Catapres-Tts Patch) 0.2 mg TD Mo [facility] Last Admin: 08/28/16 14:00 Dose: 0.2 mg Enoxaparin Sodium (Lovenox) 40 mg SUB-Q QDAY@1000 [facility] Last Admin: 08/28/16 11:03 Dose: 40 mg Hydralazine HCl (Apresoline) 10 mg IV Q4HR PRN PRN Reason: For SBP>170 or DBP > 110 Last Admin: 08/28/16 14:00 Dose: 10 mg Hydromorphone HCl (Dilaudid) 0.5 mg IV Q6H PRN PRN Reason: Pain , Severe (7-10) Sodium Chloride (Nacl 0.9% 1000 Ml) 1,000 mls @ 50 mls/hr IV DIRECT [facility] Last Admin: 08/27/16 22:45 Dose: 50 mls/hr Insulin Human Regular (Novolin R) 0 units SUB-Q ACHS [facility] PRN Reason: Protocol Last Admin: 08/28/16 12:00 Dose: Not Given Magnesium Hydroxide (Milk Of Magnesia) 30 ml PO Q4H PRN PRN Reason: Constipation Ondansetron HCl (Zofran) 4 mg IV Q8H PRN PRN Reason: N/V unrelieved by Reglan Pantoprazole Sodium (Protonix) 40 mg PO DAILY [facility] Last Admin: 08/28/16 11:03 Dose: Not Given Simvastatin (Zocor) 20 mg PO QHS [facility] Last Admin: 08/27/16 22:47 Dose: Not Given Sodium Chloride (Sodium Chloride Flush Syringe 10 Ml) 10 ml IV PRN PRN PRN Reason: LINE FLUSH Review of Systems All systems: negative Ears, nose, mouth and throat: dysphagia, no headache Cardiovascular: no chest pain, no lightheadedness Respiratory: no cough, no shortness of breath Gastrointestinal: no nausea, no vomiting, no constipation Neurological: double vision (on admission, now resolved) Exam - Constitutional Vitals: Vital Signs - 12hr 08/28/16 08/28/16 08/28/16 04:00 05:07 05:24 Temperature 98.4 F Pulse Rate 86 Pulse Rate [ 93 H Left Radial] Respiratory 18 Rate Blood Pressure 215/88 Blood Pressure 215/88 [Left Arm] O2 Sat by Pulse 97 Oximetry 08/28/16 08/28/16 08/28/16 06:15 08:26 10:30 Temperature 98.3 F Pulse Rate 111 H Pulse Rate [ 113 H 96 H Left Radial] Respiratory 18 Rate Blood Pressure Blood Pressure 140/75 162/72 [Left Arm] O2 Sat by Pulse 97 Oximetry 08/28/16 08/28/16 12:59 14:00 Temperature 98.0 F Pulse Rate Pulse Rate [ 102 H Left Radial] Respiratory 18 Rate Blood Pressure 185/88 Blood Pressure 180/85 [Left Arm] O2 Sat by Pulse 99 Oximetry General appearance: no acute distress - EENT Eyes: EOM intact ENT: hearing intact - Neck Neck: supple, normal ROM - Respiratory Respiratory: bilateral: CTA - Cardiovascular Rhythm: regular Heart Sounds: Present: S1 & S2 - Extremities Extremities: No edema - Gastrointestinal General gastrointestinal: Present: soft, non-tender, non-distended, normal bowel sounds - Integumentary Integumentary: Present: clear - Musculoskeletal Musculoskeletal: strength equal bilaterally - Neurologic Neurologic: moves all extremities, other (+facial droop, mild dysarthria; decreased sensation at right face) - Psychiatric Psychiatric: appropriate mood/affect, intact judgment & insight, memory intact, cooperative - Allied health notes FIMS assesment as documented by PT/OT/ST: Locomotion- walk/wheelchair Ambulation Distance 50 - Labs CBC & Chem 7: 08/28/16 07:16 08/28/16 07:16 Labs: Laboratory Results - last 72 hr 08/26/16 08/26/16 08/26/16 03:03 04:45 07:40 WBC RBC Hgb Hct MCV MCH MCHC RDW Plt Count Carbon Dioxide BUN Creatinine Estimated GFR BUN/Creatinine Ratio Glucose POC Glucose 304 H 379 H Calcium Total Creatine Kinase CK-MB (CK-2) CK-MB (CK-2) Rel Index Troponin T < 0.010 Triglycerides Cholesterol LDL Cholesterol Direct HDL Cholesterol Cholesterol/HDL Ratio 08/26/16 08/26/16 08/26/16 07:44 07:52 09:34 WBC RBC Hgb Hct MCV MCH MCHC RDW Plt Count Carbon Dioxide BUN Creatinine Estimated GFR BUN/Creatinine Ratio Glucose POC Glucose Calcium Total Creatine Kinase 91 CK-MB (CK-2) 4.8 H CK-MB (CK-2) Rel Index 5.2 H Troponin T < 0.010 < 0.010 Triglycerides 96 Cholesterol 267 H LDL Cholesterol Direct 183 H HDL Cholesterol 65 H Cholesterol/HDL Ratio 4.10 08/26/16 08/26/16 08/26/16 12:02 14:44 14:44 WBC RBC Hgb Hct MCV MCH MCHC RDW Plt Count Carbon Dioxide BUN Creatinine Estimated GFR BUN/Creatinine Ratio Glucose POC Glucose 359 H Calcium Total Creatine Kinase 114 CK-MB (CK-2) 8.4 H CK-MB (CK-2) Rel Index 7.3 H Troponin T 0.026 Triglycerides Cholesterol LDL Cholesterol Direct HDL Cholesterol Cholesterol/HDL Ratio 08/26/16 08/26/16 08/26/16 16:27 21:49 23:03 WBC RBC Hgb Hct MCV MCH MCHC RDW Plt Count Carbon Dioxide BUN Creatinine Estimated GFR BUN/Creatinine Ratio Glucose POC Glucose 345 H 232 H 233 H Calcium Total Creatine Kinase CK-MB (CK-2) CK-MB (CK-2) Rel Index Troponin T Triglycerides Cholesterol LDL Cholesterol Direct HDL Cholesterol Cholesterol/HDL Ratio 08/27/16 08/27/16 08/28/16 07:59 16:14 01:28 WBC RBC Hgb Hct MCV MCH MCHC RDW Plt Count Carbon Dioxide BUN Creatinine Estimated GFR BUN/Creatinine Ratio Glucose POC Glucose 273 H 250 H 233 H Calcium Total Creatine Kinase CK-MB (CK-2) CK-MB (CK-2) Rel Index Troponin T Triglycerides Cholesterol LDL Cholesterol Direct HDL Cholesterol Cholesterol/HDL Ratio 08/28/16 08/28/16 08/28/16 07:16 07:16 07:57 WBC 13.4 H RBC 4.88 Hgb 13.3 Hct 40.6 MCV 83 MCH 27 L MCHC 33 RDW 14.3 Plt Count 207 Carbon Dioxide 25 BUN 19 H Creatinine 0.5 L Estimated GFR > 60 BUN/Creatinine Ratio 38.00 Glucose 247 H POC Glucose 232 H Calcium 8.8 D Total Creatine Kinase CK-MB (CK-2) CK-MB (CK-2) Rel Index Troponin T Triglycerides Cholesterol LDL Cholesterol Direct HDL Cholesterol Cholesterol/HDL Ratio 08/28/16 12:26 WBC RBC Hgb Hct MCV MCH MCHC RDW Plt Count Carbon Dioxide BUN Creatinine Estimated GFR BUN/Creatinine Ratio Glucose POC Glucose 222 H Calcium Total Creatine Kinase CK-MB (CK-2) CK-MB (CK-2) Rel Index Troponin T Triglycerides Cholesterol LDL Cholesterol Direct HDL Cholesterol Cholesterol/HDL Ratio Assessment and Plan Patient was assessed and evaluated for Acute Inpatient Rehab Unit. 66 y.o. female s/p acute left brainstem infract; ongoing dysphagia. Rehab options discussed with patient, however, PT/OT consults are pending. Pt has good movement in all extremities, however, will need to ensure appropriate functional mobility. Pt is also currently NPO after failed MBS on today and will need adequate nutrition prior to d/c or placement. Will continue to follow ; placement recommendations to follow therapy evaluations. Thank you for consultation. - Patient Problems (1) Left-sided cerebrovascular accident (CVA) Current Visit: Yes Status: Acute (2) Dysarthria as late effect of cerebrovascular accident (CVA) Current Visit: Yes Status: Acute (3) Dysphagia as late effect of cerebrovascular accident (CVA) Current Visit: Yes Status: Acute
[2016-08-28] MEDS ORDERED: PANCREAZE DR 10,500 UNIT FEEDTUBE PRN (16:27)
[2016-08-28] MEDS ORDERED: SODIUM BICARBONATE FEEDTUBE PRN (16:27)
[2016-08-28] MEDS ORDERED: SIMPLE SYRUP FEEDTUBE PRN ×2 (16:27)
[2016-08-28] MEDS: DULCOLAX PR SCH (20:23)
[2016-08-28] MEDS ORDERED: FLEET PR ONE (22:20)
[2016-08-28] MEDS ORDERED: CARDIZEM IV ONE (23:12)
[2016-08-28] MEDS: ZOCOR PO SCH (23:30)
[2016-08-29] MEDS ORDERED: CARDIZEM IV ONE (00:15)
[2016-08-29] MEDS ORDERED: CORDARONE PO SCH ×2 (00:40→10:00)
[2016-08-29] MEDS ORDERED: D5W IV ONE (00:57)
[2016-08-29] MEDS ORDERED: CORDARONE IV ONE (00:57)
[2016-08-29] MEDS ORDERED: CORDARONE 150 MG in D5W 97 ML IV ONE (01:02)
[2016-08-29] MEDS: NACL 0.9% 1000 ML 1,000 ML IV SCH (06:20)
[2016-08-29] MEDS: ASPIRIN PO SCH (10:00)
[2016-08-29] MEDS: PROTONIX PO SCH (10:00)
--- NOTE | 2016-08-29 11:50 | XRay Report ---
KUB for Dobbhoff tube placement. Findings: A Dobbhoff tube terminates in the proximal stomach.
[2016-08-29] MEDS: APRESOLINE IV PRN (12:04)
--- NOTE | 2016-08-29 12:25 | Consultation ---
Addendum entered and electronically signed by JAYSON GIL MD 08/29/16 13:02: I have seen and examined the patient and agree with the documentation below. Original Note: History of Present Illness Consult date: 08/29/16 Requesting physician: KENTRELL MUÑOZ Consult reason: atrial fibrillation History of present illness: The patient is a 66 year old female who presented on 08/26/2016 with complaints of sudden onset substernal chest tightness and shortness of breath. While she was waiting the emergency department she developed bilateral hand numbness and slurred speech. Brain MRI revealed an acute lacunar infarct in the left inferior brain stem. Lexiscan thallium stress test done 08/27/16 was negative for ischemia. Echo showed EF 55-60%. Yesterday evening, she developed palpitations and chest tightness while she was straining to have a bowel movement. Telemetry showed atrial fibrillation with RVR. She was also noted to have several short runs of NSVT. This morning, she is back in sinus rhythm. No previous diagnosis of atrial fibrillation. Past History Past Medical History: diabetes, hypertension, hyperlipidemia, stroke Past Surgical History: Other (removal of breast cysts) Social history: lives with family (daugther). denies: smoking, alcohol abuse Family history: hypertension, other (lupus) Medications and Allergies Allergies Allergy/AdvReac Type Severity Reaction Status Date / Time morphine Allergy Hives Verified 08/25/16 23:21 fentanyl AdvReac Unknown Verified 08/28/16 20:56 Home Medications Medication Instructions Recorded Confirmed Last Taken Type Hydrochlorothiazide [HCTZ] 25 mg PO QDAY 08/26/16 08/26/16 08/25/16 History Insulin Glargine [Lantus] 15 unit SUB-Q QHS 08/26/16 08/26/16 08/25/16 History Insulin Lispro [Humalog 100 See Protocol SQ AC 08/26/16 08/26/16 08/25/16 History UNITS/ML Kwikpen] Lisinopril [Zestril] 40 mg PO DAILY 08/26/16 08/26/16 08/25/16 History Metoprolol Tartrate 100 mg PO DAILY 08/26/16 08/26/16 08/25/16 History amLODIPine [Norvasc] 5 mg PO DAILY 08/26/16 08/26/1608/25/16 History Active Meds: Active Medications Acetaminophen (Tylenol) 650 mg PO Q4H PRN PRN Reason: Pain MILD(1-3)/Fever >100.5/FU Lipase/Protease/Amylase ([place] Dr 10,500 Unit) 1 each FEEDTUBE PRN PRN PRN Reason: For Clogged Feeding Tube Aspirin (Aspirin) 325 mg PO QDAY [facility] Last Admin: 08/28/16 11:03 Dose: Not Given Bisacodyl (Dulcolax) 10 mg [place] QDAY PRN PRN Reason: Constipation unrelieved by MOM Bisacodyl (Dulcolax) 10 mg ME QDAY [facility] Stop: 08/30/16 10:01 Last Admin: 08/28/16 20:23 Dose: 10 mg Clonidine HCl (Catapres-Tts Patch) 0.2 mg TD Mo [facility] Last Admin: 08/28/16 14:00 Dose: 0.2 mg Enoxaparin Sodium (Lovenox) 40 mg SUB-Q QDAY@1000 [facility] Last Admin: 08/28/16 11:03 Dose: 40 mg Hydralazine HCl (Apresoline) 10 mg IV Q4HR PRN PRN Reason: For SBP>170 or DBP > 110 Last Admin: 08/29/16 12:04 Dose: 10 mg Hydromorphone HCl (Dilaudid) 0.5 mg IV Q6H PRN PRN Reason: Pain , Severe (7-10) Sodium Chloride (Nacl 0.9% 1000 Ml) 1,000 mls @ 50 mls/hr IV DIRECT [facility] Last Admin: 08/29/16 06:20 Dose: 50 mls/hr Insulin Human Regular (Novolin R) 0 units SUB-Q ACHS [facility] PRN Reason: Protocol Last Admin: 08/29/16 07:30 Dose: 3 units Magnesium Hydroxide (Milk Of Magnesia) 30 ml PO Q4H PRN PRN Reason: Constipation Metoprolol Tartrate (Lopressor) 5 mg IV Q6HR [facility] Ondansetron HCl (Zofran) 4 mg IV Q8H PRN PRN Reason: N/V unrelieved by Reglan Pantoprazole Sodium (Protonix) 40 mg PO DAILY [facility] Last Admin: 08/28/16 11:03 Dose: Not Given Simple Syrup (Simple Syrup) 15 ml FEEDTUBE PRN PRN PRN Reason: Hypoglycemia Simple Syrup (Simple Syrup) 30 ml FEEDTUBE PRN PRN PRN Reason: Hypoglycemia Simvastatin (Zocor) 20 mg PO QHS [facility] Last Admin: 08/28/16 23:30 Dose: Not Given Sodium Bicarbonate (Sodium Bicarbonate) 325 mg FEEDTUBE PRN PRN PRN Reason: For Clogged Feeding Tube Sodium Chloride (Sodium Chloride Flush Syringe 10 Ml) 10 ml IV PRN PRN PRN Reason: LINE FLUSH Review of Systems Constitutional: no fever, no chills Ears, nose, mouth and throat: no nasal congestion, no nasal discharge, no sinus pressure Cardiovascular: chest pain, palpitations, shortness of breath Respiratory: shortness of breath, no cough, no congestion, no wheezing Gastrointestinal: no abdominal pain, no nausea, no vomiting, no diarrhea Genitourinary Female: no dysuria, no urgency Musculoskeletal: no neck stiffness, no neck pain, no myalgias Integumentary: no rash, no pruritis Neurological: no parathesias, no numbness, no tingling, no headaches Endocrine: no cold intolerance, no heat intolerance Hematologic/Lymphatic: no easy bruising, no easy bleeding Allergic/Immunologic: no urticaria, no wheezing Physical Examination Vital Signs Temp Pulse Resp BP Pulse Ox 98.1 F 89 26 H 191/90 100 08/25/16 23:27 08/25/16 23:27 08/25/16 23:27 08/25/16 23:27 08/25/16 23:27 General appearance: no acute distress HEENT: Positive: Normocephaly, Mucus Membranes Moist Neck: Positive: neck supple, trachea midline Cardiac: Positive: Reg Rate and Rhythm, S1/S2 Lungs: Positive: clear to auscultation Neuro: Positive: Other (dysarthria) Abdomen: Positive: Soft, Active Bowel Sounds. Negative: Tender Skin: Positive: Clear. Negative: Rash Extremities: Present: normal. Absent: edema Results 08/28/16 07:16 08/28/16 07:16 - Imaging and Cardiology Echo: report reviewed (08/2016: EF 55-60%, impaired relaxation ) EKG: image reviewed EKG interpretations - Telemetry EKG Rhythm: Sinus Rhythm - EKG Supraventricular dysrhythmia: atrial fibrillation Assessment and Plan Initiate metoprolol. Optimize anti-hypertensive regimen. She will benefit from anti-coagulation, especially in the setting of afib and acute stroke. However, initiation of anti-coagulation may be commenced once it is state from a neuro standpoint. - Patient Problems (1) Acute CVA (cerebrovascular accident) Current Visit: Yes Status: Acute (2) Paroxysmal atrial fibrillation Current Visit: Yes Status: Acute (3) NSVT (nonsustained ventricular tachycardia) Current Visit: Yes Status: Acute (4) Chest pain Current Visit: Yes Status: Resolved (5) Hypertension Current Visit: Yes Status: Chronic (6) Diabetes Current Visit: Yes Status: Chronic (7) Hyperlipidemia Current Visit: Yes Status: Chronic (8) History of CVA (cerebrovascular accident) Current Visit: Yes Status: Chronic
[2016-08-29] MEDS: LOPRESSOR IV SCH ×2 (12:56→13:04)
[2016-08-29] MEDS: LOVENOX SUB-Q SCH (12:56)
[2016-08-29] MEDS: DULCOLAX PR SCH (14:39)
--- NOTE | 2016-08-29 15:38 | XRay Report ---
ABDOMEN RADIOGRAPHS INDICATION: Feeding tube placement. COMPARISON: 11:27 AM earlier today. FINDINGS: Frontal abdominal radiograph, 3:09 PM, 08/29/2016 again demonstrates Dobbhoff tube in the proximal stomach with its tip now directed laterally. Nonobstructive bowel gas pattern with mild residual colonic contrast. Few pelvic calcifications. Mild bilateral acetabular spurring. CONCLUSION: Dobbhoff tube again noted in the proximal stomach and may be advanced by approximately 10-15 cm to attempt tip placement distally, if so appropriate. Thank you for the opportunity to participate in this patient's care.
--- NOTE | 2016-08-29 17:44 | Progress Note ---
Assessment and Plan Assessment and plan: Acute ischemic stroke. Acute lacunar infarct left inferior Brainstem.. Started on Aspirin. Neurology on case. Echo, Carotid Dopplers unremarkable.. Atrial relation with rapid ventricular response. This is new onset. Consulted and discussed case with cardiology. Started on oral lopressor. Chest pain. Stress test negative. Dysphagia. Start tube feed with Dobhoff. She may need PEG Hypertension. Control BP gently because of stroke. Start Lopressor, norvasc, Lisinopril Diabetes Mellitus Type 2. Fingerstick glucose q 6h. Hyperlipidemia. Started Zocor Full code status. Discussed with Patient and daughter at bedside History Interval history: Episodes of rapid atrial fibrillation, Still slurred speech, Still difficulty swallowing Hospitalist Physical - Physical exam Narrative exam: Gen: Not in acute distress HEENT: Facial weakness Neck :supple, no JVD Lungs: Crackles left upper lung field, no wheeze Heart S1 and S2 irregular irreg, rapid,, no murmurs no gallop Abdomen:soft, nontender, nondistended, normal bowel sounds Ext: No edema, no clubbing or cyanosis Neuro: Awake alert oriented x 3, dysarthria, facial weakness, muscle power 5/5 both upper and lower ext - Constitutional Vitals: Temp Pulse Resp BP Pulse Ox 98.3 F 76 20 188/84 96 08/29/16 11:49 08/29/16 11:49 08/29/16 11:49 08/29/16 12:04 08/29/16 11:49 General appearance: Present: no acute distress Results - Labs CBC & Chem 7: 08/28/16 07:16 08/28/16 07:16 Labs: Laboratory Last Values WBC 13.4 K/mm3 (4.5-11.0) H 08/28/16 07:16 RBC 4.88 M/mm3 (3.65-5.03) 08/28/16 07:16 Hgb 13.3 gm/dl (10.1-14.3) 08/28/16 07:16 Hct 40.6 % (30.3-42.9) 08/28/16 07:16 MCV 83 fl (79-97) 08/28/16 07:16 MCH 27 pg (28-32) L 08/28/16 07:16 MCHC 33 % (30-34) 08/28/16 07:16 RDW 14.3 % (13.2-15.2) 08/28/16 07:16 Plt Count 207 K/mm3 (140-440) 08/28/16 07:16 Lymph % (Auto) 26.8 % (13.4-35.0) 08/26/16 00:31 Park % (Auto) 7.8 % (0.0-7.3) H 08/26/16 00:31 Eos % (Auto) 0.3 % (0.0-4.3) 08/26/16 00:31 Baso % (Auto) 0.8 % (0.0-1.8) 08/26/16 00:31 Lymph # 3.1 K/mm3 (1.2-5.4) 08/26/16 00:31 Park # 0.9 K/mm3 (0.0-0.8) H 08/26/16 00:31 Eos # 0.0 K/mm3 (0.0-0.4) 08/26/16 00:31 Baso # 0.1 K/mm3 (0.0-0.1) 08/26/16 00:31 Seg Neutrophils % 64.3 % (40.0-70.0) 08/26/16 00:31 Seg Neutrophils # 7.5 K/mm3 (1.8-7.7) 08/26/16 00:31 Sodium 137 mmol/L (137-145) 08/26/16 00:31 Potassium 3.7 mmol/L (3.6-5.0) 08/26/16 00:31 Chloride 89.8 mmol/L (98-107) L 08/26/16 00:31 Carbon Dioxide 25 mmol/L (22-30) 08/28/16 07:16 Anion Gap 32 mmol/L 08/26/16 00:31 BUN 19 mg/dL (7-17) H 08/28/16 07:16 Creatinine 0.5 mg/dL (0.7-1.2) L 08/28/16 07:16 Estimated GFR > 60 ml/min 08/28/16 07:16 BUN/Creatinine Ratio 38.00 % 08/28/16 07:16 Glucose 247 mg/dL (65-100) H 08/28/16 07:16 POC Glucose 219 (70-105) H 08/29/16 07:28 Calcium 8.8 mg/dL (8.4-10.2) D 08/28/16 07:16 Total Creatine Kinase 114 units/L (30-135) 08/26/16 14:44 CK-MB (CK-2) 8.4 ng/mL (0.0-4.0) H 08/26/16 14:44 CK-MB (CK-2) Rel Index 7.3 (0-4) H 08/26/16 14:44 Troponin T 0.026 ng/mL (0.00-0.029) 08/26/16 14:44 Triglycerides 96 mg/dL (2-149) 08/26/16 07:52 Cholesterol 267 mg/dL (50-199) H 08/26/16 07:52 LDL Cholesterol Direct 183 mg/dL (50-130) H 08/26/16 07:52 HDL Cholesterol 65 mg/dL (40-59) H 08/26/16 07:52 Cholesterol/HDL Ratio 4.10 % 08/26/16 07:52
[2016-08-29] MEDS ORDERED: LOPRESSOR PO SCH (22:00)
[2016-08-29] MEDS: ZOCOR PO SCH (22:30)
[2016-08-30] MEDS: NACL 0.9% 1000 ML 1,000 ML IV SCH ×2 (02:00→23:41)
[2016-08-30] MEDS: APRESOLINE IV PRN (05:51)
[2016-08-30] MEDS ORDERED: NORVASC PO SCH (10:00)
[2016-08-30] MEDS: ZESTRIL PO SCH (10:51)
[2016-08-30] MEDS: LOVENOX SUB-Q SCH (10:51)
[2016-08-30] MEDS: ASPIRIN PO SCH (10:52)
[2016-08-30] MEDS: NORVASC PO SCH (10:52)
[2016-08-30] MEDS: PROTONIX PO SCH (10:52)
[2016-08-30] MEDS: DULCOLAX PR SCH (10:53)
--- NOTE | 2016-08-30 12:14 | Progress Note ---
Addendum entered and electronically signed by JAYSON GIL MD 08/30/16 12:30: I have seen and examined the patient and agree with the documentation below. Original Note: Assessment and Plan Optimize anti-hypertensive regimen. She will benefit from anti-coagulation, especially in the setting of afib and acute stroke. However, initiation of anti- coagulation may be commenced once it is state from a neuro standpoint. - Patient Problems (1) Acute CVA (cerebrovascular accident) Current Visit: Yes Status: Acute (2) Paroxysmal atrial fibrillation Current Visit: Yes Status: Acute (3) NSVT (nonsustained ventricular tachycardia) Current Visit: Yes Status: Acute (4) Chest pain Current Visit: Yes Status: Resolved (5) Hypertension Current Visit: Yes Status: Chronic (6) Diabetes Current Visit: Yes Status: Chronic (7) Hyperlipidemia Current Visit: Yes Status: Chronic (8) History of CVA (cerebrovascular accident) Current Visit: Yes Status: Chronic Subjective Date of service: 08/30/16 Principal diagnosis: paroxysmal atrial fibrillation Interval history: The patient is resting in bed. No new complaints. Sinus rhythm on the monitor. Objective Last Vital Signs Temp 97.5 F L 08/30/16 08:51 Pulse 101 H 08/30/16 08:51 Resp 20 08/30/16 08:51 BP 165/78 08/30/16 08:51 Pulse Ox 95 08/30/16 08:51 - Physical Examination General: No Apparent Distress HEENT: Positive: Normocephaly, Mucus Membranes Moist Neck: Positive: neck supple, trachea midline Cardiac: Positive: Reg Rate and Rhythm, S1/S2 Lungs: Positive: clear to auscultation Neuro: Positive: Other (dysarthria) Abdomen: Positive: Soft, Active Bowel Sounds. Negative: Tender Skin: Positive: Clear. Negative: Rash Extremities: Present: normal. Absent: edema - Imaging and Cardiology EKG: image reviewed Echo: report reviewed (08/2016: EF 55-60%, impaired relaxation ) - Telemetry EKG Rhythm: Sinus Rhythm
[2016-08-30] MEDS: LOPRESSOR PO SCH ×2 (14:06→22:38)
--- NOTE | 2016-08-30 17:02 | Progress Note ---
Assessment and Plan Assessment and plan: Acute ischemic stroke. Acute lacunar infarct left inferior Brainstem.. Started on Aspirin. Neurology on case. Echo, Carotid Dopplers unremarkable.. Atrial fibrillation with rapid ventricular response. This is new onset. Consulted and discussed case with cardiology. Started on oral lopressor. Will need anticoagulation after PEG. Chest pain. Stress test negative. Dysphagia. Started tube feed with Dobhoff. She will need PEG tube. I discussed with patient and daughter at bedside. Consult GI. hold tube feed after midnight. Hypertension. Cont Lopressor, norvasc, Lisinopril Diabetes Mellitus Type 2. Fingerstick glucose q 6h. Hyperlipidemia. Started Zocor Full code status. Discussed with Patient and daughter at bedside History Interval history: Still slurred speech, Still difficulty swallowing Hospitalist Physical - Physical exam Narrative exam: Gen: Not in acute distress HEENT: Facial weakness Neck :supple, no JVD Lungs: Crackles left upper lung field, no wheeze Heart S1 and S2 irregular irreg, rapid,, no murmurs no gallop Abdomen:soft, nontender, nondistended, normal bowel sounds Ext: No edema, no clubbing or cyanosis Neuro: Awake alert oriented x 3, dysarthria, facial weakness, muscle power 5/5 both upper and lower ext - Constitutional Vitals: Temp Pulse Resp BP Pulse Ox 97.8 F 75 18 158/75 98 08/30/16 13:26 08/30/16 13:26 08/30/16 13:26 08/30/16 13:26 08/30/16 13:26 General appearance: Present: no acute distress Results - Labs CBC & Chem 7: 08/28/16 07:16 08/28/16 07:16 Labs: Laboratory Last Values WBC 13.4 K/mm3 (4.5-11.0) H 08/28/16 07:16 RBC 4.88 M/mm3 (3.65-5.03) 08/28/16 07:16 Hgb 13.3 gm/dl (10.1-14.3) 08/28/16 07:16 Hct 40.6 % (30.3-42.9) 08/28/16 07:16 MCV 83 fl (79-97) 08/28/16 07:16 MCH 27 pg (28-32) L 08/28/16 07:16 MCHC 33 % (30-34) 08/28/16 07:16 RDW 14.3 % (13.2-15.2) 08/28/16 07:16 Plt Count 207 K/mm3 (140-440) 08/28/16 07:16 Lymph % (Auto) 26.8 % (13.4-35.0) 08/26/16 00:31 Rankin % (Auto) 7.8 % (0.0-7.3) H 08/26/16 00:31 Eos % (Auto) 0.3 % (0.0-4.3) 08/26/16 00:31 Baso % (Auto) 0.8 % (0.0-1.8) 08/26/16 00:31 Lymph # 3.1 K/mm3 (1.2-5.4) 08/26/16 00:31 Rankin # 0.9 K/mm3 (0.0-0.8) H 08/26/16 00:31 Eos # 0.0 K/mm3 (0.0-0.4) 08/26/16 00:31 Baso # 0.1 K/mm3 (0.0-0.1) 08/26/16 00:31 Seg Neutrophils % 64.3 % (40.0-70.0) 08/26/16 00:31 Seg Neutrophils # 7.5 K/mm3 (1.8-7.7) 08/26/16 00:31 Sodium 137 mmol/L (137-145) 08/26/16 00:31 Potassium 3.7 mmol/L (3.6-5.0) 08/26/16 00:31 Chloride 89.8 mmol/L (98-107) L 08/26/16 00:31 Carbon Dioxide 25 mmol/L (22-30) 08/28/16 07:16 Anion Gap 32 mmol/L 08/26/16 00:31 BUN 19 mg/dL (7-17) H 08/28/16 07:16 Creatinine 0.5 mg/dL (0.7-1.2) L 08/28/16 07:16 Estimated GFR > 60 ml/min 08/28/16 07:16 BUN/Creatinine Ratio 38.00 % 08/28/16 07:16 Glucose 247 mg/dL (65-100) H 08/28/16 07:16 POC Glucose 244 (70-105) H 08/29/16 21:47 Calcium 8.8 mg/dL (8.4-10.2) D 08/28/16 07:16 Total Creatine Kinase 114 units/L (30-135) 08/26/16 14:44 CK-MB (CK-2) 8.4 ng/mL (0.0-4.0) H 08/26/16 14:44 CK-MB (CK-2) Rel Index 7.3 (0-4) H 08/26/16 14:44 Troponin T 0.026 ng/mL (0.00-0.029) 08/26/16 14:44 Triglycerides 96 mg/dL (2-149) 08/26/16 07:52 Cholesterol 267 mg/dL (50-199) H 08/26/16 07:52 LDL Cholesterol Direct 183 mg/dL (50-130) H 08/26/16 07:52 HDL Cholesterol 65 mg/dL (40-59) H 08/26/16 07:52 Cholesterol/HDL Ratio 4.10 % 08/26/16 07:52
[2016-08-30] MEDS ORDERED: NON-FORMULARY (Insulin Glargine 15 UNIT) SUB-Q SCH (22:00)
[2016-08-30] MEDS: LEVEMIR SUB-Q SCH (22:40)
[2016-08-30] MEDS: ZOCOR PO SCH (22:41)
[2016-08-31 06:02] LABS: INR 1.04 (0.87-1.13)
[2016-08-31 06:06] LABS: Blood Urea Nitrogen 16 mg/dL (7-17); Calcium 8.8 mg/dL (8.4-10.2); Carbon Dioxide 27 mmol/L (22-30); Glucose 125 mg/dL (65-100); Potassium 3.1 mmol/L (3.6-5.0); Sodium 143 mmol/L (137-145)
[2016-08-31 06:13] LABS: Anion Gap 17 mmol/L
--- NOTE | 2016-08-31 07:27 | Vascular Lab Report ---
CAROTID DUPLEX STUDY: RIGHT PSVEDV CCA PROX:130 8 CCA DIST: 7614 ICA PROX: 6821 ICA MID:85693 ICA DIST:41876 ECA: 01360 VERT: 109 20 LEFT PSVEDV CCA PROX:44601 CCA MID 171 22 CCA DIST: 7812 ICA PROX:34455 ICA MID: 7524 ICA DIST: 7624 ECA: 9210 VERT: 36 4 REASON FOR EXAM: Stroke. COMMENTS ON THE RIGHT: Doppler frequency analysis is consistent with 16 to 49 percent diameter reduction of the internal carotid artery. Minimal amount of plaque is seen. The common carotid artery is patent. The external carotid artery is patent. The vertebral artery has antegrade flow. COMMENTS ON THE LEFT: Doppler frequency analysis is consistent with 16 to 49 percent diameter reduction of the internal carotid artery. Minimal amount of plaque is seen. The common carotid artery is patent. The external carotid artery is patent. The vertebral artery has antegrade flow. IMPRESSION: Less than 50% diameter reduction in the internal carotid arteries bilaterally. Consider repeat carotid artery duplex in 12 months.
--- NOTE | 2016-08-31 09:06 | Event Note ---
Date: 08/31/16 Consult noted, Discussed with patient at bedside. Patient states her swallowing has improved. She wants to be re-evaluated per speech path. D/W nurse Gin. Will hold off on consult until patient can be re-evaluated. IF the patient fails swallow eval again, please re-consult. Amara Carter, ACNP-BC
[2016-08-31] MEDS: NORVASC PO SCH (11:06)
[2016-08-31] MEDS: PROTONIX PO SCH (11:07)
[2016-08-31] MEDS: LOPRESSOR PO SCH ×3 (11:07→21:25)
[2016-08-31] MEDS: LOVENOX SUB-Q SCH (11:08)
[2016-08-31] MEDS: ZESTRIL PO SCH (11:08)
[2016-08-31] MEDS: CATAPRES PO SCH ×2 (11:14→21:25)
[2016-08-31] MEDS: POTASSIUM CHLORIDE FEEDTUBE SCH ×2 (11:14→16:58)
[2016-08-31] MEDS: KCL 10MEQ/100ML 100 ML IV SCH (11:27)
--- NOTE | 2016-08-31 11:28 | Progress Note ---
Assessment and Plan Optimize anti-hypertensive regimen. Initiation of anti-coagulation may be commenced once it is safe from a neuro standpoint. - Patient Problems (1) Acute CVA (cerebrovascular accident) Current Visit: Yes Status: Acute (2) Paroxysmal atrial fibrillation Current Visit: Yes Status: Acute (3) NSVT (nonsustained ventricular tachycardia) Current Visit: Yes Status: Acute (4) Chest pain Current Visit: Yes Status: Resolved (5) Hypertension Current Visit: Yes Status: Chronic (6) Diabetes Current Visit: Yes Status: Chronic (7) Hyperlipidemia Current Visit: Yes Status: Chronic (8) History of CVA (cerebrovascular accident) Current Visit: Yes Status: Chronic Subjective Date of service: 08/31/16 Principal diagnosis: paroxysmal atrial fibrillation Interval history: The patient is resting in bed. Her speech has improved since yesterday. Awaiting swallow evaluation. Sinus rhythm on the monitor. Objective Last Vital Signs Temp 97.6 F 08/31/16 10:52 Pulse 60 08/31/16 11:08 Resp 18 08/31/16 10:52 BP 138/74 08/31/16 11:08 Pulse Ox 97 08/31/16 10:52 - Physical Examination General: No Apparent Distress HEENT: Positive: Normocephaly, Mucus Membranes Moist Neck: Positive: neck supple, trachea midline Cardiac: Positive: Reg Rate and Rhythm, S1/S2 Lungs: Positive: clear to auscultation Neuro: Positive: Other (dysarthria) Abdomen: Positive: Soft, Active Bowel Sounds. Negative: Tender Skin: Positive: Clear. Negative: Rash Extremities: Present: normal. Absent: edema - Labs and Meds Coagulation 08/31/16 Range/Units 04:58 PT 13.5 (12.2-14.9) Sec. INR 1.04 (0.87-1.13) APTT 32.0 (24.2-36.6) Sec. Comprehensive Metabolic Panel 08/31/16 Range/Units 04:58 Sodium 143 (137-145) mmol/L Potassium 3.1 L (3.6-5.0) mmol/L Chloride 102.0 (98-107) mmol/L Carbon Dioxide 27 (22-30) mmol/L BUN 16 (7-17) mg/dL Creatinine 0.4 L (0.7-1.2) mg/dL Glucose 125 H (65-100) mg/dL Calcium 8.8 (8.4-10.2) mg/dL - Imaging and Cardiology EKG: image reviewed Echo: report reviewed (08/2016: EF 55-60%, impaired relaxation ) - Telemetry EKG Rhythm: Sinus Rhythm
[2016-08-31] MEDS ORDERED: KCL 10MEQ/100ML 100 ML IV SCH (12:00)
--- NOTE | 2016-08-31 13:15 | Progress Note ---
Assessment and Plan Assessment and plan: Acute ischemic stroke. Acute lacunar infarct left inferior Brainstem.. Started on Aspirin. Neurology on case. Echo, Carotid Dopplers unremarkable.. Atrial fibrillation with rapid ventricular response. This is new onset. Now in NSR. Continue Lopressor. Cardiology following. Started on oral lopressor. Will need anticoagulation after PEG. Chest pain. Stress test negative. Dysphagia. This is now improved. Started tube feed with Dobhoff. She was scheduled for PEG tube today but sttated she has improved swallowing. Swallow eval was done by speech pathologist. She did well and has been started on Pureed diet. PEG tube placement cancelled. Hypertension. Cont Lopressor, norvasc, Lisinopril Diabetes Mellitus Type 2. Fingerstick glucose q 6h. Hyperlipidemia. Started Zocor Full code status. Discussed with Patient and daughter at bedside History Interval history: Still slurred speech, Swallowing improved Hospitalist Physical - Physical exam Narrative exam: Gen: Not in acute distress HEENT: Facial weakness Neck :supple, no JVD Lungs: Clear to auscultation bilat, no crackles or wheeze, Heart S1 and S2 reg, no murmurs no gallop Abdomen:soft, nontender, nondistended, normal bowel sounds Ext: No edema, no clubbing or cyanosis Neuro: Awake alert oriented x 3, dysarthria, facial weakness, muscle power 5/5 both upper and lower ext - Constitutional Vitals: Temp Pulse Resp BP Pulse Ox 97.6 F 60 18 138/74 97 08/31/16 10:52 08/31/16 11:08 08/31/16 10:52 08/31/16 11:08 08/31/16 10:52 General appearance: Present: no acute distress Results - Labs CBC & Chem 7: 08/28/16 07:16 08/31/16 15:08 Labs: Laboratory Last Values WBC 13.4 K/mm3 (4.5-11.0) H 08/28/16 07:16 RBC 4.88 M/mm3 (3.65-5.03) 08/28/16 07:16 Hgb 13.3 gm/dl (10.1-14.3) 08/28/16 07:16 Hct 40.6 % (30.3-42.9) 08/28/16 07:16 MCV 83 fl (79-97) 08/28/16 07:16 MCH 27 pg (28-32) L 08/28/16 07:16 MCHC 33 % (30-34) 08/28/16 07:16 RDW 14.3 % (13.2-15.2) 08/28/16 07:16 Plt Count 207 K/mm3 (140-440) 08/28/16 07:16 Lymph % (Auto) 26.8 % (13.4-35.0) 08/26/16 00:31 Early % (Auto) 7.8 % (0.0-7.3) H 08/26/16 00:31 Eos % (Auto) 0.3 % (0.0-4.3) 08/26/16 00:31 Baso % (Auto) 0.8 % (0.0-1.8) 08/26/16 00:31 Lymph # 3.1 K/mm3 (1.2-5.4) 08/26/16 00:31 Early # 0.9 K/mm3 (0.0-0.8) H 08/26/16 00:31 Eos # 0.0 K/mm3 (0.0-0.4) 08/26/16 00:31 Baso # 0.1 K/mm3 (0.0-0.1) 08/26/16 00:31 Seg Neutrophils % 64.3 % (40.0-70.0) 08/26/16 00:31 Seg Neutrophils # 7.5 K/mm3 (1.8-7.7) 08/26/16 00:31 PT 13.5 Sec. (12.2-14.9) 08/31/16 04:58 INR 1.04 (0.87-1.13) 08/31/16 04:58 APTT 32.0 Sec. (24.2-36.6) 08/31/16 04:58 Sodium 143 mmol/L (137-145) 08/31/16 04:58 Potassium 3.1 mmol/L (3.6-5.0) L 08/31/16 04:58 Chloride 102.0 mmol/L (98-107) 08/31/16 04:58 Carbon Dioxide 27 mmol/L (22-30) 08/31/16 04:58 Anion Gap 17 mmol/L 08/31/16 04:58 BUN 16 mg/dL (7-17) 08/31/16 04:58 Creatinine 0.4 mg/dL (0.7-1.2) L 08/31/16 04:58 Estimated GFR > 60 ml/min 08/31/16 04:58 BUN/Creatinine Ratio 40.00 % 08/31/16 04:58 Glucose 125 mg/dL (65-100) H 08/31/16 04:58 POC Glucose 152 (70-105) H 08/31/16 12:09 Calcium 8.8 mg/dL (8.4-10.2) 08/31/16 04:58 Total Creatine Kinase 114 units/L (30-135) 08/26/16 14:44 CK-MB (CK-2) 8.4 ng/mL (0.0-4.0) H 08/26/16 14:44 CK-MB (CK-2) Rel Index 7.3 (0-4) H 08/26/16 14:44 Troponin T 0.026 ng/mL (0.00-0.029) 08/26/16 14:44 Triglycerides 96 mg/dL (2-149) 08/26/16 07:52 Cholesterol 267 mg/dL (50-199) H 08/26/16 07:52 LDL Cholesterol Direct 183 mg/dL (50-130) H 08/26/16 07:52 HDL Cholesterol 65 mg/dL (40-59) H 08/26/16 07:52 Cholesterol/HDL Ratio 4.10 % 08/26/16 07:52
[2016-08-31 16:13] LABS: BUN/Creatinine Ratio 28.33; Blood Urea Nitrogen 17 mg/dL (7-17); Calcium 8.8 mg/dL (8.4-10.2); Carbon Dioxide 26 mmol/L (22-30); Chloride 99.3 mmol/L (98-107); Glucose 285 mg/dL (65-100); Potassium 3.6 mmol/L (3.6-5.0); Sodium 137 mmol/L (137-145)
[2016-08-31 16:15] LABS: Anion Gap 15 mmol/L
--- NOTE | 2016-08-31 18:50 | Consultation ---
History of Present Illness - Reason for Consult Consult date: 08/31/16 anticoagulation - History of Present Illness spoke to the dietetic aide about neuro clearance to begin anticoagulation for atrial fibrillation .... based on the location of the lesion and the neuro factors it is acceptable to start therapy with any of the anticoagulation therapies- would get CT of head as f/u 4 days post starting anticoagulation for monitoring Thanks Past History Past Medical History: diabetes, hypertension, hyperlipidemia, stroke Past Surgical History: Other (removal of breast cysts) Social history: lives with family (daugther). denies: smoking, alcohol abuse Family history: hypertension, other (lupus) Medications and Allergies Allergies Allergy/AdvReac Type Severity Reaction Status Date / Time morphine Allergy Hives Verified 08/25/16 23:21 fentanyl AdvReac Unknown Verified 08/28/16 20:56 Home Medications Medication Instructions Recorded Confirmed Last Taken Type Hydrochlorothiazide [HCTZ] 25 mg PO QDAY 08/26/16 08/26/16 08/25/16 History Insulin Glargine [Lantus] 15 unit SUB-Q QHS 08/26/16 08/26/16 08/25/16 History Insulin Lispro [Humalog 100 See Protocol SQ AC 08/26/16 08/26/16 08/25/16 History UNITS/ML Kwikpen] Lisinopril [Zestril] 40 mg PO DAILY 08/26/16 08/26/16 08/25/16 History Metoprolol Tartrate 100 mg PO DAILY 08/26/16 08/26/16 08/25/16 History amLODIPine [Norvasc] 5 mg PO DAILY 08/26/16 08/26/16 08/25/16 History Active Meds: Active Medications Acetaminophen (Tylenol) 650 mg PO Q4H PRN PRN Reason: Pain MILD(1-3)/Fever >100.5/FU Amlodipine Besylate (Norvasc) 10 mg PO QDAY [facility] Last Admin: 08/31/16 11:06 Dose: 10 mg Lipase/Protease/Amylase (Pancreaze Dr 10,500 Unit) 1 each FEEDTUBE PRN PRN PRN Reason: For Clogged Feeding Tube Bisacodyl (Dulcolax) 10 mg [place] QDAY PRN PRN Reason: Constipation unrelieved by MOM Clonidine HCl (Catapres) 0.2 mg PO Q12HR [facility] Last Admin: 08/31/16 11:14 Dose: Not Given Enoxaparin Sodium (Lovenox) 40 mg SUB-Q QDAY@1000 [facility] Last Admin: 08/31/16 11:08 Dose: 40 mg Hydralazine HCl (Apresoline) 10 mg IV Q4HR PRN PRN Reason: For SBP>170 or DBP > 110 Last Admin: 08/30/16 05:51 Dose: 10 mg Hydromorphone HCl (Dilaudid) 0.5 mg IV Q6H PRN PRN Reason: Pain , Severe (7-10) Sodium Chloride (Nacl 0.9% 1000 Ml) 1,000 mls @ 50 mls/hr IV DIRECT [facility] Last Admin: 08/30/16 23:41 Dose: 50 mls/hr Insulin Detemir (Levemir) 15 units SUB-Q QHS [facility] Last Admin: 08/30/16 22:40 Dose: 15 units Insulin Human Regular (Novolin R) 0 units SUB-Q ACHS [facility] PRN Reason: Protocol Last Admin: 08/31/16 16:59 Dose: 3 units Lisinopril (Zestril) 40 mg PO QDAY [facility] Last Admin: 08/31/16 11:08 Dose: 40 mg Magnesium Hydroxide (Milk Of Magnesia) 30 ml PO Q4H PRN PRN Reason: Constipation Metoprolol Tartrate (Lopressor) 100 mg PO TID [facility] Last Admin: 08/31/16 16:58 Dose: 100 mg Ondansetron HCl (Zofran) 4 mg IV Q8H PRN PRN Reason: N/V unrelieved by Reglan Pantoprazole Sodium (Protonix) 40 mg PO DAILY [facility] Last Admin: 08/31/16 11:07 Dose: 40 mg Simple Syrup (Simple Syrup) 15 ml FEEDTUBE PRN PRN PRN Reason: Hypoglycemia Simple Syrup (Simple Syrup) 30 ml FEEDTUBE PRN PRN PRN Reason: Hypoglycemia Simvastatin (Zocor) 20 mg PO QHS [facility] Last Admin: 08/30/16 22:41 Dose: Not Given Sodium Bicarbonate (Sodium Bicarbonate) 325 mg FEEDTUBE PRN PRN PRN Reason: For Clogged Feeding Tube Sodium Chloride (Sodium Chloride Flush Syringe 10 Ml) 10 ml IV PRN PRN PRN Reason: LINE FLUSH Exam - Constitutional Vitals: Temp Pulse Resp BP Pulse Ox 97.7 F 94 H 20 134/70 98 08/31/16 16:00 08/31/16 16:00 08/31/16 16:00 08/31/16 16:00 08/31/16 16:00 Results - Labs CBC & Chem 7: 08/28/16 07:16 08/31/16 15:08 Labs: Abnormal lab results 08/30/16 08/30/16 08/30/16 Range/Units 07:43 13:13 21:45 Potassium (3.6-5.0) mmol/L Creatinine (0.7-1.2) mg/dL Glucose (65-100) mg/dL POC Glucose 297 H 291 H 220 H (70-105) 08/31/16 08/31/16 08/31/16 Range/Units 04:58 12:09 15:08 Potassium 3.1 L (3.6-5.0) mmol/L Creatinine 0.4 L 0.6 L (0.7-1.2) mg/dL Glucose 125 H 285 H (65-100) mg/dL POC Glucose 152 H (70-105) 08/31/16 Range/Units 16:24 Potassium (3.6-5.0) mmol/L Creatinine (0.7-1.2) mg/dL Glucose (65-100) mg/dL POC Glucose 232 H (70-105)
[2016-08-31] MEDS: ZOCOR PO SCH (21:25)
[2016-08-31] MEDS: LEVEMIR SUB-Q SCH (21:29)
[2016-09-01] MEDS: ASPIRIN PO SCH ×2 (03:00→11:00)
[2016-09-01] MEDS: NORVASC PO SCH (11:00)
[2016-09-01] MEDS: ZESTRIL PO SCH (11:00)
[2016-09-01] MEDS: PROTONIX PO SCH (11:00)
[2016-09-01] MEDS: CATAPRES PO SCH ×2 (11:00→21:30)
[2016-09-01] MEDS: LOVENOX SUB-Q SCH (11:00)
[2016-09-01] MEDS: LOPRESSOR PO SCH ×3 (11:00→21:29)
[2016-09-01] MEDS: NACL 0.9% 1000 ML 1,000 ML IV SCH (11:38)
--- NOTE | 2016-09-01 12:07 | Progress Note ---
Assessment and Plan Neuro consult noted. now in sinus rythm.Pt was given info about choice of anticoagulants.Patint will decide. overall cardiac status is stable. - Patient Problems (1) Left-sided cerebrovascular accident (CVA) Current Visit: Yes Status: Acute (2) Paroxysmal atrial fibrillation Current Visit: Yes Status: Acute Subjective Date of service: 09/01/16 Principal diagnosis: paroxysmal atrial fibrillation Interval history: Doing well today. No cardiac sx Objective Vital Signs Temp Pulse Pulse Resp BP BP Pulse Ox 09/01/16 11:00 66 152/72 09/01/16 09:38 97.5 F L 62 14 152/72 100 09/01/16 06:21 97.9 F 58 L 18 122/61 95 09/01/16 06:00 60 09/01/16 00:31 97.6 F 60 20 111/67 98 08/31/16 20:44 97.9 F 71 18 181/88 98 08/31/16 16:00 97.7 F 94 H 20 134/70 98 - Physical Examination General: No Apparent Distress HEENT: Positive: Normocephaly, Mucus Membranes Moist Neck: Positive: neck supple, trachea midline Cardiac: Positive: Reg Rate and Rhythm Lungs: Positive: clear to auscultation Neuro: Positive: Other (dysarthria) Abdomen: Positive: Soft, Active Bowel Sounds. Negative: Tender Skin: Positive: Clear. Negative: Rash Extremities: Present: normal. Absent: edema - Labs and Meds Comprehensive Metabolic Panel 08/31/16 Range/Units 15:08 Sodium 137 (137-145) mmol/L Potassium 3.6 (3.6-5.0) mmol/L Chloride 99.3 (98-107) mmol/L Carbon Dioxide 26 (22-30) mmol/L BUN 17 (7-17) mg/dL Creatinine 0.6 L (0.7-1.2) mg/dL Glucose 285 H (65-100) mg/dL Calcium 8.8 (8.4-10.2) mg/dL - Imaging and Cardiology EKG: image reviewed Echo: report reviewed (08/2016: EF 55-60%, impaired relaxation )
--- NOTE | 2016-09-01 13:05 | Discharge Summary ---
Providers - Providers Date of Admission: 08/26/16 02:58 Date of discharge: 09/01/16 Attending physician: KENTRELL MUÑOZ 08/26/16 07:46 Consult to Physician [CONS] Routine Consulting Provider: ESTEFANI BASS Reason For Exam: cva Place consult to:: Dr. Bass Notified:: Katja RN Phone number called:: Was contact made?: Yes If yes, spoke with:: [facility] Time called:: 08:49 Occupational Therapy Evaluate and Treat [CONS] Routine Comment: Reason For Exam: Neuro deficits Physical Therapy Evaluation and Treat [CONS] Routine Comment: Reason For Exam: Neuro deficits 08/26/16 17:28 Speech Therapy Evaluation and Treat [CONS] Routine Reason For Exam: possible CVA 08/28/16 10:06 Consult Acute Rehabilitation [CONS] Routine Consulting Provider: MELCHOR PARKER Reason For Exam: CVA 08/28/16 15:44 Consult to Dietitian/Nutrition [CONS] Routine Physician Instructions: Reason For Exam: Reason for Consult: Write/Manage Tube Feeding 08/29/16 10:39 Consult to Physician [CONS] Routine Consulting Provider: JAYSON GIL Reason For Exam: rapid afib Place consult to:: Dr. Gil Notified:: Zeinab CAN Was contact made?: Yes If yes, spoke with:: Monica Abdul Time called:: 11:02 08/30/16 16:53 Consult to Physician [CONS] Routine Consulting Provider: KERVIN LANDRY Reason For Exam: PEG tube placement Place consult to:: Dr. Landry Notified:: Dr Landry Primary care physician: [employer]TE[employer]CE [employer] Hospitalization Condition: Fair Disposition: DISCHARGED TO HOME OR SELFCARE - Discharge Diagnoses (1) Acute ischemic stroke Status: Acute (2) Atrial fibrillation with RVR Status: Acute (3) Hyperlipidemia Status: Chronic (4) Hypertension Status: Chronic (5) Diabetes mellitus type 2 in nonobese Status: Acute (6) Dysphagia due to recent cerebral infarction Status: Acute Core Measure Documentation - Palliative Care Palliative Care/ Comfort Measures: Not Applicable - Core Measures Any of the following diagnoses?: stroke - Stroke Discharge Requirements Statin for LDL = or >70 mg/dl on DC: Yes Anticoag for atrial fib/atrial flutter: Yes Antithrombotic for ischemic stroke: Yes Exam - Constitutional Vitals: Temp Pulse Resp BP Pulse Ox 97.5 F L 66 14 152/72 100 09/01/16 09:38 09/01/16 11:00 09/01/16 09:38 09/01/16 11:00 09/01/16 09:38 Plan Activity: no restrictions Diet: other (Pureed diet,diabetic,cardiac) Special Instructions: home health RN Additional Instructions: 1.Follow up with PCP in 3-5 days. 2.Follow up with Ob Gyn Physician Assistant from [facility] in 3-5 days. 3.Follow up with Neurologist in 1 week. 4.Home health speech therapy Follow up with: PRIMARY CARE, [Primary Care Provider] - 3-5 Days Prescriptions: Dabigatran [Pradaxa] 150 mg PO BID #60 capsule Metoprolol [Lopressor TAB] 100 mg PO TID #90 tablet Pantoprazole [Protonix TAB] 40 mg PO DAILY #30 tablet Simvastatin [Zocor TAB] 20 mg PO QHS #30 tablet amLODIPine [Norvasc] 10 mg PO QDAY #30 tablet cloNIDine [Catapres] 0.2 mg PO Q12HR #60 tablet
--- NOTE | 2016-09-01 20:31 | Progress Note ---
Assessment and Plan Assessment and plan: Acute ischemic stroke. Acute lacunar infarct left inferior Brainstem.. Started on Aspirin. Neurology on case. Echo, Carotid Dopplers unremarkable.. Atrial fibrillation with rapid ventricular response. This is new onset. Now in NSR. Continue Lopressor. Cardiology following. Started on oral lopressor. Patient and daughter to discuss anticoagulation with Business Office Associate.. Chest pain. Stress test negative. Dysphagia. This is now improved on repeat swallow study therefore started on Pureed diet. PEG tube placement cancelled. Hypertension. Cont Lopressor, norvasc, Lisinopril Diabetes Mellitus Type 2. Fingerstick glucose q 6h. Hyperlipidemia. Started Zocor Full code status. Discussed with Patient and daughter at bedside - Patient Problems (1) Acute ischemic stroke Current Visit: Yes Status: Acute (2) Atrial fibrillation with RVR Current Visit: Yes Status: Acute (3) Hyperlipidemia Current Visit: Yes Status: Chronic (4) Hypertension Current Visit: Yes Status: Chronic (5) Diabetes mellitus type 2 in nonobese Current Visit: Yes Status: Acute (6) Dysphagia due to recent cerebral infarction Current Visit: Yes Status: Acute History Interval history: Still slurred speech, Swallowing improved, Hospitalist Physical - Physical exam Narrative exam: Gen: Not in acute distress HEENT: Facial weakness Neck :supple, no JVD Lungs: Clear to auscultation bilat, no crackles or wheeze, Heart S1 and S2 reg, no murmurs no gallop Abdomen:soft, nontender, nondistended, normal bowel sounds Ext: No edema, no clubbing or cyanosis Neuro: Awake alert oriented x 3, dysarthria, facial weakness, muscle power 5/5 both upper and lower ext - Constitutional Vitals: Temp Pulse Resp BP Pulse Ox 97.9 F 78 16 131/65 99 09/01/16 18:30 09/01/16 18:30 09/01/16 18:30 09/01/16 18:30 09/01/16 18:30 General appearance: Present: no acute distress Results - Labs CBC & Chem 7: 08/28/16 07:16 08/31/16 15:08 Labs: Laboratory Last Values WBC 13.4 K/mm3 (4.5-11.0) H 08/28/16 07:16 RBC 4.88 M/mm3 (3.65-5.03) 08/28/16 07:16 Hgb 13.3 gm/dl (10.1-14.3) 08/28/16 07:16 Hct 40.6 % (30.3-42.9) 08/28/16 07:16 MCV 83 fl (79-97) 08/28/16 07:16 MCH 27 pg (28-32) L 08/28/16 07:16 MCHC 33 % (30-34) 08/28/16 07:16 RDW 14.3 % (13.2-15.2) 08/28/16 07:16 Plt Count 207 K/mm3 (140-440) 08/28/16 07:16 Lymph % (Auto) 26.8 % (13.4-35.0) 08/26/16 00:31 Alexander % (Auto) 7.8 % (0.0-7.3) H 08/26/16 00:31 Eos % (Auto) 0.3 % (0.0-4.3) 08/26/16 00:31 Baso % (Auto) 0.8 % (0.0-1.8) 08/26/16 00:31 Lymph # 3.1 K/mm3 (1.2-5.4) 08/26/16 00:31 Alexander # 0.9 K/mm3 (0.0-0.8) H 08/26/16 00:31 Eos # 0.0 K/mm3 (0.0-0.4) 08/26/16 00:31 Baso # 0.1 K/mm3 (0.0-0.1) 08/26/16 00:31 Seg Neutrophils % 64.3 % (40.0-70.0) 08/26/16 00:31 Seg Neutrophils # 7.5 K/mm3 (1.8-7.7) 08/26/16 00:31 PT 13.5 Sec. (12.2-14.9) 08/31/16 04:58 INR 1.04 (0.87-1.13) 08/31/16 04:58 APTT 32.0 Sec. (24.2-36.6) 08/31/16 04:58 Sodium 137 mmol/L (137-145) 08/31/16 15:08 Potassium 3.6 mmol/L (3.6-5.0) 08/31/16 15:08 Chloride 99.3 mmol/L (98-107) 08/31/16 15:08 Carbon Dioxide 26 mmol/L (22-30) 08/31/16 15:08 Anion Gap 15 mmol/L 08/31/16 15:08 BUN 17 mg/dL (7-17) 08/31/16 15:08 Creatinine 0.6 mg/dL (0.7-1.2) L 08/31/16 15:08 Estimated GFR > 60 ml/min 08/31/16 15:08 BUN/Creatinine Ratio 28.33 % 08/31/16 15:08 Glucose 285 mg/dL (65-100) H 08/31/16 15:08 POC Glucose 262 (70-105) H 09/01/16 17:07 Calcium 8.8 mg/dL (8.4-10.2) 08/31/16 15:08 Total Creatine Kinase 114 units/L (30-135) 08/26/16 14:44 CK-MB (CK-2) 8.4 ng/mL (0.0-4.0) H 08/26/16 14:44 CK-MB (CK-2) Rel Index 7.3 (0-4) H 08/26/16 14:44 Troponin T 0.026 ng/mL (0.00-0.029) 08/26/16 14:44 Triglycerides 96 mg/dL (2-149) 08/26/16 07:52 Cholesterol 267 mg/dL (50-199) H 08/26/16 07:52 LDL Cholesterol Direct 183 mg/dL (50-130) H 08/26/16 07:52 HDL Cholesterol 65 mg/dL (40-59) H 08/26/16 07:52 Cholesterol/HDL Ratio 4.10 % 08/26/16 07:52
[2016-09-01] MEDS: LEVEMIR SUB-Q SCH (21:30)
[2016-09-01] MEDS: ZOCOR PO SCH (21:30)
[2016-09-02] MEDS: PROTONIX PO SCH (10:01)
[2016-09-02] MEDS: NORVASC PO SCH (10:01)
[2016-09-02] MEDS: CATAPRES PO SCH (10:01)
[2016-09-02] MEDS: ASPIRIN PO SCH (10:01)
[2016-09-02] MEDS: LOVENOX SUB-Q SCH (10:02)
[2016-09-02] MEDS: LOPRESSOR PO SCH (10:02)
[2016-09-02] MEDS: ZESTRIL PO SCH (10:02)
--- NOTE | 2016-09-02 10:54 | Event Note ---
[id number] after talking with Cardiology. Will d/c today. Time spent on discharge, 45 mins.
--- NOTE | 2016-09-02 10:58 | Progress Note ---
Assessment and Plan Neuro consult noted. now in sinus rythm.Pt was given info about choice of anticoagulants.Patint Discussed with brittany,her daughter and Dr barbosa overall cardiac status is stable.Agree with d/c planning - Patient Problems (1) Left-sided cerebrovascular accident (CVA) Current Visit: Yes Status: Acute (2) Paroxysmal atrial fibrillation Current Visit: Yes Status: Acute Subjective Principal diagnosis: paroxysmal atrial fibrillation Interval history: Doing well today. No cardiac sx Objective Vital Signs Temp Pulse Pulse Pulse Resp BP BP 09/02/16 10:02 80 09/02/16 10:01 80 09/02/16 08:10 97.6 F 70 20 132/78 09/02/16 05:23 97.6 F 87 19 09/02/16 00:00 97.6 F 73 20 09/01/16 20:00 98.2 F 58 L 70 19 09/01/16 18:30 97.9 F 78 16 09/01/16 15:30 97.8 F 72 16 09/01/16 15:19 72 135/75 09/01/16 11:00 66 152/72 BP Pulse Ox 09/02/16 10:02 09/02/16 10:01 09/02/16 08:10 98 09/02/16 05:23 140/70 97 09/02/16 00:00 125/61 96 09/01/16 20:00 144/75 97 09/01/16 18:30 131/65 99 09/01/16 15:30 135/75 100 09/01/16 15:19 09/01/16 11:00 - Physical Examination General: No Apparent Distress HEENT: Positive: Normocephaly, Mucus Membranes Moist Neck: Positive: neck supple, trachea midline Cardiac: Positive: Reg Rate and Rhythm, Regular Rate, Other (occ ectopy) Lungs: Positive: clear to auscultation Neuro: Positive: Other (dysarthria) Abdomen: Positive: Soft, Active Bowel Sounds. Negative: Tender Skin: Positive: Clear. Negative: Rash Extremities: Present: normal. Absent: edema - Imaging and Cardiology EKG: image reviewed Echo: report reviewed (08/2016: EF 55-60%, impaired relaxation )
[2016-09-02 14:04] VITALS: BP 127/72
[2016-09-02] MEDS ORDERED: PNEUMOVAX 23 IM ONE (14:17)
== END 2016-09-02 13:20 | disposition home or self-care (01) | DRG 65 ==
LOC: ED 23:17 → 4A 08-26 02:58
PROVIDERS: ADMIT Internal Medicine; ATTEND Internal Medicine
DX: I63.9 Cerebral infarction, unspecified (principal); G81.94 Hemiplegia, unspecified affecting left nondominant side; I16.0 Hypertensive urgency; E11.8 Type 2 diabetes mellitus with unspecified complications; E78.5 Hyperlipidemia, unspecified; I48.0 Paroxysmal atrial fibrillation; R13.10 Dysphagia, unspecified; Z87.891 Personal history of nicotine dependence; Z98.890 Other specified postprocedural states; Z82.49 Family history of ischemic heart disease and other diseases of the circulatory system; Z88.8 Allergy status to other drugs, medicaments and biological substances; Z79.4 Long term (current) use of insulin; Z79.899 Other long term (current) drug therapy; Z84.89 Family history of other specified conditions
CPT/HCPCS: 36415; 70450; 70551; 71010; 74000; 74230; 78452; 80048; 80061; 82550; 82553; 82962; 84484; 85025; 85027; 85610; 85730; 90686; 90732; 93005; 93010; 93017; 93306; 93880; 96374; 96375; A9502; C9113; G8978-GP; G8979-GP; G8996-GN; G8997-GN; J0282; J0360; J1650; J1815; J1818; J2270; J2405; J2785; J3010; J3480; J7030